=== PATIENT | female | born 1950 | race Caucasian/White ===

== ENCOUNTER → 2020-04-10 08:36 | Outpatient (REF) | payer MEDICARE, OTHER, SELFPAY ==
--- NOTE | 2020-04-10 08:30 | CA_ITS ---
Transthoracic Echocardiogram Patient (Last, First, Middle): Shari Witt J Gender: Female Date of : 1950 Age: 69 Procedure Date: 04/10/2020 Procedure Type: Transthoracic Echocardiogram Location: OP Height: 149.86 cm Weight: 104.33 kg BSA: 1.96 m2 Heart Rate: bpm BP: 130 / 68 mmHg Green Feed Attendant: ERIKA Referring MD: Dinh West MD Symptoms: 149.5, SSS( Sick sinus syndrome) 147.1 SVT ( Supraventricular tachycardia) Study Quality: Fair ECG Rhythm: Sinus Conclusions: - The left ventricular systolic function is normal. The visually estimated ejection fraction is between 55-60%. - E/E prime ratio is >15, consistent with elevated filling pressures. Evidence suggests grade I (mild) diastolic dysfunction. - No obvious valvular pathology seen on this study. Findings Left Ventricle Normal left ventricular cavity size. There is normal left ventricular wall thickness. The left ventricular systolic function is normal. The visually estimated ejection fraction is between 55-60%. There is no evidence of regional wall motion abnormalities. E/E prime ratio is >15, consistent with elevated filling pressures. Evidence suggests grade I (mild) diastolic dysfunction. Right Ventricle Normal right ventricular cavity size and systolic function. Atria The left atrium is normal in size. The right atrium is normal in size. Aortic Valve The aortic valve was not well visualized. There is no aortic valve stenosis. There is no aortic valve regurgitation. Mitral Valve The mitral valve appears normal. There is trace mitral valve regurgitation. There is no mitral valve stenosis. Pulmonic Valve The pulmonic valve was not well visualized. Tricuspid Valve There is trace tricuspid valve regurgitation. The pulmonary artery systolic pressure is normal. Great Vessels The aortic annulus, sinuses of valsalva, and asc aorta are normal in size. Venous The inferior vena cava is normal in size and collapses greater than 50% with inspiration. Pericardium/Pleural There is no evidence of pericardial effusion. Prior Study Comparison No significant change compared to prior study dated: 03/20/2019. Recommendations, Care & Conclusions No obvious valvular pathology seen on this study. Measurements 2D Linear Measurements IVSd: 1.10 0.6-0.9/0.6-1.0 cm LVIDd: 4.67 3.9-5.3/4.2-5.9 cm LVIDs: 2.60 2.0-3.6 cm LVPWd: 0.99 0.7-1.1 cm LV Mass: 214.71 67-162/88-224 g LVOT Diam: 1.93 3.0+(-)1.3 cm Mitral Valve MV Pk E: 0.78 MV PK A: 1.13 MV Decel Time: 161.06 E/A: 0.69 E'Lateral: 0.05 E'Medial: 0.04 E/E' Med: 17.61 Decel [place]: 4.82 Aortic Valve AoV Pk Nima: 1.55 AoV Pk Grad: 9.60 LVOT LVOT Pk Nima: 0.88 LVOT Mn Nima: 0.62 LVOT VTI: 0.21 LVOT Pk Grad: 3.11 LVOT Mn Grad: 1.72 LVOT Diam: 1.93 LVOT Area: 2.92 Diastolic Function MV Pk E: 0.78 MV Pk A: 1.13 E/A: 0.69 E'Medial: 0.04 E/E' Med: 17.61 E' Laterial: 0.05 Tricuspid Valve TR Pk Nima: 2.17 TR Pk Grad: 19.02 RA Press: 3.00 RVSP: 22.00 Great Vessels Aorta Ao Asc: 2.90 2.1-3.4 cm Updated in Other Vendor System with Status of Final Yvan Palacios MD electronically signed on 04/11/2020 12:43:50 PM with status of Final
== END ==
LOC: HO.CARD 08:36
PROVIDERS: PCP Internal Medicine; Visit Provider Internal Medicine Cardiovascular Disease
DX: I49.5 Sick sinus syndrome (principal); I44.7 Left bundle-branch block, unspecified; I47.1 Supraventricular tachycardia; G47.33 Obstructive sleep apnea (adult) (pediatric)
CPT/HCPCS: 93306

== ENCOUNTER → 2020-05-16 14:21 | Outpatient (BNVA) | payer MEDICARE, OTHER, SELFPAY | PROVIDERS: PCP Internal Medicine; Referring Provider Internal Medicine; Visit Provider Internal Medicine Cardiovascular Disease | DX: I47.1 Supraventricular tachycardia (principal); Z86.79 Personal history of other diseases of the circulatory system; Z79.82 Long term (current) use of aspirin; Z79.899 Other long term (current) drug therapy; Z95.0 Presence of cardiac pacemaker | CPT/HCPCS: 99212 ==

== ENCOUNTER → 2020-05-31 12:37 | Outpatient (BNVA) | payer MEDICARE, OTHER, SELFPAY | PROVIDERS: PCP Internal Medicine; Visit Provider Physician Assistant | DX: E66.01 Morbid (severe) obesity due to excess calories (principal) | CPT/HCPCS: 99202 ==

== ENCOUNTER → 2020-06-10 12:47 | Outpatient (BNVA) | payer MEDICARE, OTHER, SELFPAY | PROVIDERS: PCP Internal Medicine; Referring Provider Internal Medicine; Visit Provider Internal Medicine Cardiovascular Disease | DX: Z76.89 Persons encountering health services in other specified circumstances (principal) ==

== ENCOUNTER 2020-06-10 13:33 | Emergency (ER) | payer MEDICARE, OTHER, SELFPAY ==
--- NOTE | 2020-06-10 | ECG_ITS ---
Test Reason : RAPID HEART BEAT Blood Pressure : / mmHG Vent. Rate : 091 BPM Atrial Rate : 091 BPM P-R Int : 192 ms QRS Dur : 136 ms QT Int : 392 ms P-R-T Axes : 054 -58 098 degrees QTc Int : 482 ms Normal sinus rhythm Left axis deviation Left bundle branch block Abnormal ECG When compared with ECG of 10-JUN-2020 14:38, Sinus rhythm has replaced Wide QRS tachycardia Referred By: Brenda Bond Electronically Signed By:Aniket Bonilla
[2020-06-10 13:46] VITALS: BP 152/97; PULSE 124; RESP 18; TEMP 37; O2SAT 97; BMI 48.0
--- NOTE | 2020-06-10 13:46 | ECG_ITS ---
Test Reason : TACY Blood Pressure : / mmHG Vent. Rate : 125 BPM Atrial Rate : 125 BPM P-R Int : 000 ms QRS Dur : 126 ms QT Int : 338 ms P-R-T Axes : 000 -66 104 degrees QTc Int : 487 ms When compared with ECG of 01-APR-2018 13:14, Wide QRS tachycardia has replaced Sinus rhythm Vent. rate has increased BY 63 BPM Referred By: Brenda Bond Electronically Signed By:Aniket Bonilla
--- NOTE | 2020-06-10 13:46 | XR_ITS ---
EXAMINATION: XR CHEST CLINICAL INFORMATION: Tachycardia. COMPARISON: 08/12/2018 TECHNIQUE: Frontal view of the chest was obtained. FINDINGS: Stable cardiomediastinal silhouette. Left pectoral pacemaker with leads extending to the right atrium and right ventricle. Cardiac leads overlie the chest. Low lung volumes. No focal consolidation, effusion, edema or pneumothorax is seen. No acute osseous or fatty. XR/XR chest 1V IMPRESSION: No acute cardiopulmonary findings seen.
--- NOTE | 2020-06-10 13:48 | ED.CHESTPAIN ---
HPI - Chest Pain General Chief Complaint: Arrhythmia/Palpitations Stated Complaint: svt Time Seen by Provider: 06/10/20 13:35 Source: patient Mode of arrival: ambulatory History of Present Illness HPI narrative: 69-year-old female with a past medical history of LBBB, AVINASH, sick sinus syndrome, SVT, pacemaker sent to ED by Dr. West S/P SVT noted on in office EKG FLAME GOUGER with patient reported palpitations, lightheadedness, and chest tightness. Vagal maneuvers and carotid massage tried office without relief. Per cardiologists note Pacer telemetry did not reveal any other fast ventricular rate in the recent past. Patient denied symptoms prior to office visit. States sx began when she was being hooked up to machine in office. Denies SOB, fever, chills, cough/recent illness, recent travel, LE edema, abdominal pain, nausea/vomiting MD complaint: chest heaviness Related Data Home Medications Medication Instructions Recorded Confirmed aspirin 81 mg tablet,delayed 81 mg PO DAILY 05/16/20 06/10/20 release atorvastatin 20 mg tablet 20 mg PO DAILY 05/16/20 06/10/20 levothyroxine 75 mcg tablet 75 mcg PO DAILY tab 05/16/20 06/10/20 lorazepam 1 mg tablet 0.5 mg PO DAILY PRN 05/16/20 06/10/20 escitalopram oxalate 10 mg tablet 15 mg PO DAILY tab 06/10/20 06/10/20 Previous Rx's Medication Instructions Recorded metoprolol succinate 25 mg 25 mg PO DAILY 90 Days #90 tab 04/09/20 tablet,extended release 24 hr Allergies Allergy/AdvReac Type Severity Reaction Status Date / Time doxycycline [DOXYCYCLINE] Allergy Intermediate RASH Verified 06/10/20 13:16 Sulfa (Sulfonamide Allergy Intermediate RASH/VOMITI Verified 06/10/20 13:16 Antibiotics) NG [SULFA (SULFONAMIDE ANTIBIOTICS)] Review of Systems Review of Systems: Constitutional: No Weight loss, No Fever, No Chills Cardiovascular: + Chest Pain, No SOB, No Dyspnea on Exertion, No Orthopnea, No Edema, + Palpitations Respiratory: No Cough, No Sputum, No Dyspnea Gastrointestinal: No Nausea, No Vomiting, No Diarrhea, No Constipation, No Abdominal pain Genitourinary: No irregular bleeding, No Dysuria, No Urinary Frequency, No Hematuria Musculoskeletal: No joint pain, No Myalgias, No Joint Swelling Skin: No Skin Lesions, No rash Neuro: No Weakness, No Numbness, No Paresthesias, No Loss of Consciousness, + lightheaded, No Headache Yes all other systems are reviewed and are negative [facility] Past Medical History Attestation statement: The following information was validated with the patient. Source: nursing notes reviewed Medical History Cardiac pacemaker in situ LBBB (left bundle branch block) AVINASH (obstructive sleep apnea) Sick sinus syndrome SVT (supraventricular tachycardia) Surgical History H/O cardiac radiofrequency ablation History of cardiac radiofrequency ablation History of permanent cardiac pacemaker placement Hx of LASIK Hx of plastic surgery Hx of wisdom tooth extraction Family History Family History Father Sudden cardiac Mother Lung cancer Liver cancer Brother CVD (cardiovascular disease) Social History Social History Alcohol intake: former Smoking Status: Former smoker Advance Directives: No Advance Directives Information Provided: No Physical Exam Vital Signs: Vital Signs: Last Vital Signs Temp 98.6 F 06/10/20 13:46 Pulse 84 06/10/20 17:38 Resp 15 06/10/20 14:17 BP 141/81 H 06/10/20 17:38 Pulse Ox 97 06/10/20 14:17 Body Mass Index 48.0 Const: General: cooperative, healthy appearing and comfortable Orientation/consciousness: patient oriented x3 Limitations: no limitations HENMT: Head: Yes normal to inspection Ears: hearing grossly normal bilaterally General nose exam: Normal external nose present Face and sinus: Yes normal facial exam Eyes: General: appearance normal, both eyes and all related structures EOM: EOMs intact bilaterally Neck: Neck: Yes normal visual inspection and Yes no meningeal signs Resp: Effort & Inspection: normal respiratory effort Auscultation: clear to auscultation bilaterally, no rales, no rhonchi and no wheezes Cardio: Rate: regular rate and tachycardic Heart sounds: S1 normal heart sound present and S2 normal heart sound present GI: Inspection: Yes normal to inspection Palpation (GI): Soft to palpation, nontender, no guarding and not rigid Skin: Rashes: no rashes Wounds: no wounds Neuro: General: patient oriented x3 and no meningeal signs Gait exam (Neuro): Normal gait present Extrem: General: Yes normal to inspection Course Course Course Narrative: 1451-- ED EKG showing wide complex tachycardia with no discrete consistent P waves. Will give 6 of IV adenosine 1520-- patient self broke rhythm, heart rate at present 91-98, repeat EKG showing discernible regular P-waves > will hold on adenosine 1652- labs notable for elevated initial troponin 22.1 > will repeat 3 hour troponin CXR unremarkable Patient given 25 mg of p.o. metoprolol in the ED > heart rate now in the 70s, repeat troponin without delta > DE unlikely. Patient reports symptomatic improvement in the ED. Asymptomatic at present. Worrisome signs and symptoms and strict return precautions discussed. Per Dr. Borden note will increase metoprolol to 50 mg daily. Patient is aware, and reports she has enough Metoprolol at home. Will call in the morning for follow-up appointment. Worrisome signs and symptoms and strict return precautions discussed. Patient verbalized understanding feel safe for discharge home MDM - Chest Pain MDM Narrative Medical decision making narrative: 69-year-old female with a past medical history of LBBB, AVINASH, sick sinus syndrome, SVT, pacemaker sent to ED by Dr. West S/P SVT noted on in office EKG FLAME GOUGER with patient reported palpitations, lightheadedness, and chest tightness. On exam tachycardic, wide complex regular tachycardia noted on heart monitor, patient is nontoxic appearing, lungs CTA. Rule out metabolic/infectious etiology precipitating tachycardia vs ACS vs anxiety. Lower concern for PE Plan: EKG, labs, CXR, IVF, Reassess Lab Data Result diagrams: 06/10/20 13:53 06/10/20 17:21 Labs: Lab Results 06/10/20 06/10/20 06/10/20 Range/Units 13:53 13:53 13:53 WBC 8.1 (4.8-10.8) X10*3/uL RBC 4.98 (4.20-5.50) X10*6/uL Hgb 14.3 (12.0-16.0) g/dl Hct 45.2 (37-47) % MCV 90.8 (80-98) fL MCH 28.7 (27.0-33.0) pg MCHC 31.6 (31.0-35.0) g/dl RDW 14.7 (11.0-16.0) % Plt Count 306 (160-400) X10*3/uL MPV 10.0 (9.4-12.3) fL Immature Gran % (Auto) 0.1 (0.0-0.4) % Neut % (Auto) 55.8 (45-73) % Lymph % (Auto) 30.0 (20-40) % [place] % (Auto) 12.3 H (2-11) % Eos % (Auto) 1.2 (0-4) % Baso % (Auto) 0.6 (0-2) % Lymph # (Auto) 2.4 (1.2-4.9) X10*3/uL [place] # (Auto) 1.0 (0.1-1.2) X10*3/uL Eos # (Auto) 0.1 (0.0-0.4) X10*3/uL Baso # (Auto) 0.1 (0.0-0.2) X10*3/uL Abs Immat Gran (auto) 0.01 (0.00-0.03) X10*3/uL Absolute Neuts (auto) 4.5 (2.0-8.3) X10*3/uL Absolute Nucleated RBC 0.000 (0.0-0.012) X10*3/uL Nucleated RBC % (auto) 0.0 (0.0-0.2) /100WBC Hold Blue Top Sodium Cancelled Potassium Cancelled Chloride Cancelled Carbon Dioxide Cancelled Anion Gap Cancelled BUN Cancelled Creatinine Cancelled Estim Creat Clear Calc Cancelled Estimated GFR Cancelled Random Glucose Cancelled Calcium Cancelled Magnesium Cancelled Total Bilirubin Cancelled Direct Bilirubin Cancelled AST Cancelled ALT Cancelled Alkaline Phosphatase Cancelled Troponin I High Sens 22.1 H (<3.5-17.0) ng/L B-Natriuretic Peptide (<100) pg/mL Total Protein Cancelled Albumin Cancelled TSH Urine Color Urine Appearance Urine pH (5.0-8.0) Ur Specific [place] (1.005-1.025) Urine Protein (NEG-TRACE) MG/DL Urine Glucose (UA) (NEG) MG/DL Urine Ketones (NEG) MG/DL Urine Blood (NEG) Urine Nitrite (NEG) Ur Leukocyte Esterase (NEG) Urine RBC (0) /HPF Urine WBC (0-4) /HPF Ur Squamous Epith Cells /LPF Urine Bacteria /LPF 06/10/20 06/10/20 06/10/20 Range/Units 13:53 13:53 13:53 WBC (4.8-10.8) X10*3/uL RBC (4.20-5.50) X10*6/uL Hgb (12.0-16.0) g/dl Hct (37-47) % MCV (80-98) fL MCH (27.0-33.0) pg MCHC (31.0-35.0) g/dl RDW (11.0-16.0) % Plt Count (160-400) X10*3/uL MPV (9.4-12.3) fL Immature Gran % (Auto) (0.0-0.4) % Neut % (Auto) (45-73) % Lymph % (Auto) (20-40) % [place] % (Auto) (2-11) % Eos % (Auto) (0-4) % Baso % (Auto) (0-2) % Lymph # (Auto) (1.2-4.9) X10*3/uL [place] # (Auto) (0.1-1.2) X10*3/uL Eos # (Auto) (0.0-0.4) X10*3/uL Baso # (Auto) (0.0-0.2) X10*3/uL Abs Immat Gran (auto) (0.00-0.03) X10*3/uL Absolute Neuts (auto) (2.0-8.3) X10*3/uL Absolute Nucleated RBC (0.0-0.012) X10*3/uL Nucleated RBC % (auto) (0.0-0.2) /100WBC Hold Blue Top SEE NOTE Sodium Potassium Chloride Carbon Dioxide Anion Gap BUN Creatinine Estim Creat Clear Calc Estimated GFR Random Glucose Calcium Magnesium Total Bilirubin Direct Bilirubin AST ALT Alkaline Phosphatase Troponin I High Sens (<3.5-17.0) ng/L B-Natriuretic Peptide 21 (<100) pg/mL Total Protein Albumin TSH Cancelled Urine Color Urine Appearance Urine pH (5.0-8.0) Ur Specific [place] (1.005-1.025) Urine Protein (NEG-TRACE) MG/DL Urine Glucose (UA) (NEG) MG/DL Urine Ketones (NEG) MG/DL Urine Blood (NEG) Urine Nitrite (NEG) Ur Leukocyte Esterase (NEG) Urine RBC (0) /HPF Urine WBC (0-4) /HPF Ur Squamous Epith Cells /LPF Urine Bacteria /LPF 06/10/20 06/10/20 06/10/20 Range/Units 14:45 17:21 17:21 WBC (4.8-10.8) X10*3/uL RBC (4.20-5.50) X10*6/uL Hgb (12.0-16.0) g/dl Hct (37-47) % MCV (80-98) fL MCH (27.0-33.0) pg MCHC (31.0-35.0) g/dl RDW (11.0-16.0) % Plt Count (160-400) X10*3/uL MPV (9.4-12.3) fL Immature Gran % (Auto) (0.0-0.4) % Neut % (Auto) (45-73) % Lymph % (Auto) (20-40) % [place] % (Auto) (2-11) % Eos % (Auto) (0-4) % Baso % (Auto) (0-2) % Lymph # (Auto) (1.2-4.9) X10*3/uL [place] # (Auto) (0.1-1.2) X10*3/uL Eos # (Auto) (0.0-0.4) X10*3/uL Baso # (Auto) (0.0-0.2) X10*3/uL Abs Immat Gran (auto) (0.00-0.03) X10*3/uL Absolute Neuts (auto) (2.0-8.3) X10*3/uL Absolute Nucleated RBC (0.0-0.012) X10*3/uL Nucleated RBC % (auto) (0.0-0.2) /100WBC Hold Blue Top Sodium 139 Potassium 4.5 Chloride 105 Carbon Dioxide 25 Anion Gap 14 BUN 17 H Creatinine 0.78 Estim Creat Clear Calc 70.2 Estimated GFR > 60 Random Glucose 103 Calcium 8.8 Magnesium 2.1 Total Bilirubin 0.3 Direct Bilirubin < 0.2 AST 26 ALT 19 Alkaline Phosphatase 77 Troponin I High Sens 26.3 H (<3.5-17.0) ng/L B-Natriuretic Peptide (<100) pg/mL Total Protein 6.8 Albumin 4.0 TSH 1.69 Urine Color YELLOW Urine Appearance CLEAR Urine pH 5.5 (5.0-8.0) Ur Specific [place] >= 1.030 H (1.005-1.025) Urine Protein NEG (NEG-TRACE) MG/DL Urine Glucose (UA) NEG (NEG) MG/DL Urine Ketones 5 (NEG) MG/DL Urine Blood 1+ H (NEG) Urine Nitrite NEG (NEG) Ur Leukocyte Esterase NEG (NEG) Urine RBC 1-4 (0) /HPF Urine WBC 0-2 (0-4) /HPF Ur Squamous Epith Cells 1+ /LPF Urine Bacteria 1+ /LPF Discharge Plan Discharge Clinical Impression: SVT (supraventricular tachycardia) Patient Disposition: Home, Self-Care Instructions: Supraventricular Tachycardia (ED) Additional Instructions: Your blood work was reassuring today in the ED Your chest x-ray was unremarkable YOU NEED TO INCREASE HER METOPROLOL TO 50 MG DAILY AVOID ANY STIMULANTS 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 IF YOUR SYMPTOMS RECUR, PERSIST, YOU HAVE CONSTANT WORSENING CHEST PAIN, SHORTNESS OF BREATH, PALPITATIONS, LIGHTHEADEDNESS/DIZZINESS, OR PASSING RETURN TO THE ED IMMEDIATELY Prescriptions: No Action metoprolol succinate 25 mg tablet extended release 24 hr 25 mg PO DAILY 90 Days Qty: 90 RF: 3 atorvastatin 20 mg tablet 20 mg PO DAILY RF: 0 lorazepam 1 mg tablet 0.5 mg PO DAILY PRN (Reason: anxiety) RF: 0 aspirin [Adult Low Dose Aspirin] 81 mg tablet,delayed release (DR/EC) 81 mg PO DAILY RF: 0 levothyroxine 75 mcg tablet 75 mcg PO DAILY RF: 0 escitalopram oxalate 10 mg tablet 15 mg PO DAILY RF: 0 Referrals: Dinh West MD [Physician] - 5 days Interventions: ED Discharge Assessment Last Done: 06/10/20 18:58 Discharge Date/Time: 06/10/20 19:05
[2020-06-10] MEDS: 0.9 % Sodium Chloride 1,000 ML 999 ML IVCONT (13:55)
[2020-06-10 14:03] LABS: Basophils Absolute Auto 0.1 X10*3/uL (0.0-0.2); Basophils Percent Auto 0.6 % (0-2); Eosinophils Absolute Auto 0.1 X10*3/uL (0.0-0.4); Eosinophils Percent Auto 1.2 % (0-4); Hematocrit 45.2 % (37-47); Hemoglobin 14.3 g/dl (12.0-16.0); Imm Gran Abs Auto 0.01 X10*3/uL (0.00-0.03); Imm Gran Pct Auto 0.1 % (0.0-0.4); Lymphocytes Absolute Auto 2.4 X10*3/uL (1.2-4.9); MANUAL DIFF FLAG NO; Mean Corpuscular HGB Conc 31.6 g/dl (31.0-35.0); Mean Corpuscular Hemoglobin 28.7 pg (27.0-33.0); Mean Corpuscular Volume 90.8 fL (80-98); Monocytes Percent Auto 12.3 % (2-11); Neutrophils Absolute Auto 4.5 X10*3/uL (2.0-8.3); Neutrophils Percent Auto 55.8 % (45-73); Platelet Count 306 X10*3/uL (160-400); Red Blood Count 4.98 X10*6/uL (4.20-5.50); Red Cell Distribution Width 14.7 % (11.0-16.0); White Blood Count 8.1 X10*3/uL (4.8-10.8)
[2020-06-10 14:17] VITALS: PULSE 117; RESP 15; O2SAT 97
[2020-06-10 14:20] VITALS: PULSE 117
[2020-06-10 14:31] VITALS: BP 126/68
[2020-06-10 14:54] LABS: B Type Natriuretic Peptide 21 pg/mL (<100)
[2020-06-10 14:58] LABS: Troponin-I High Sensitivity 22.1 ng/L (<3.5-17.0)
[2020-06-10 15:06] LABS: Glucose Urine UA NEG (NEG); Leukocyte Esterase Urine NEG (NEG); Nitrite Urine NEG (NEG); PH 5.5 (5.0-8.0); Specific Gravity - Urine >= 1.030 (1.005-1.025); Urine Blood 1+ (NEG); Urine Ketones 5 MG/DL (NEG); Urine Protein NEG (NEG-TRACE)
[2020-06-10 15:11] LABS: Appearance Urine CLEAR; Color Urine YELLOW
[2020-06-10 15:21] LABS: Bacteria Urine 1+ /LPF; Squamous Epithelial Cell Urine 1+ /LPF; WBC Urine 0-2 /HPF (0-4)
--- NOTE | 2020-06-10 15:30 | PC.NURSE ---
patient to recieve adenosine for hr 130's. presently hr 89. provider aware. awaiting plan of actioin.
[2020-06-10 17:38] VITALS: BP 141/81; PULSE 84
[2020-06-10] MEDS: Metoprolol Tartrate 25 MG TABLET PO (17:38)
[2020-06-10 18:09] LABS: Alanine Aminotransferase 19 U/L (0-31); Alkaline Phosphatase 77 U/L (39-117); Anion Gap 14 (12-20); Aspartate Amino Transferase 26 U/L (5-31); Bilirubin Direct < 0.2 mg/dL (0.0-0.5); Bilirubin Total 0.3 mg/dL (0.0-1.0); Blood Urea Nitrogen 17 mg/dL (9-16); Calcium 8.8 mg/dL (8.4-10.2); Carbon Dioxide 25 mmol/L (22-29); Chloride 105 mmol/L (96-108); Creatinine Clr Calc Pharmacy 70.2; Estimated Glomerular Filt Rate > 60; Glucose Random 103 mg/dL (60-115); Magnesium 2.1 mg/dL (1.6-2.6); Potassium 4.5 mmol/l (3.3-5.1); Sodium 139 mmol/L (135-145); Total Protein 6.8 g/dL (6.5-8.0)
[2020-06-10 18:20] LABS: Troponin-I High Sensitivity 26.3 ng/L (<3.5-17.0)
[2020-06-10 18:30] LABS: TSH reflex Free T4 1.69 mIU/mL (0.32-4.0)
== END 2020-06-10 19:05 | disposition home or self-care (01) ==
PROVIDERS: Physician Assistant; Emergency Provider Emergency Medicine; PCP Internal Medicine
DX: I47.1 Supraventricular tachycardia (principal); Z95.0 Presence of cardiac pacemaker; Z79.82 Long term (current) use of aspirin; Z79.899 Other long term (current) drug therapy; Z87.891 Personal history of nicotine dependence
CPT/HCPCS: 36415; 71045; 80048; 80076; 81001; 81003; 83735; 83880; 84443; 84484; 85025; 93005; 96361; 96374; 99212; 99284

== ENCOUNTER → 2020-06-19 08:16 | Outpatient (BNVA) | payer MEDICARE, OTHER, SELFPAY | PROVIDERS: PCP Internal Medicine; Referring Provider Internal Medicine; Visit Provider Physician Assistant | DX: E66.01 Morbid (severe) obesity due to excess calories (principal); Z68.42 Body mass index [BMI] 45.0-49.9, adult; I47.1 Supraventricular tachycardia; Z79.899 Other long term (current) drug therapy; Z95.0 Presence of cardiac pacemaker | CPT/HCPCS: Q3014 ==

== ENCOUNTER → 2020-06-25 09:06 | Outpatient (BNVA) | payer MEDICARE, OTHER, SELFPAY | PROVIDERS: PCP Physician Assistant Medical; Visit Provider Internal Medicine Cardiovascular Disease | DX: Z76.89 Persons encountering health services in other specified circumstances (principal) ==

== ENCOUNTER → 2020-06-27 08:13 | Outpatient (BNVA) | payer MEDICARE, OTHER, SELFPAY | PROVIDERS: PCP Physician Assistant Medical; Visit Provider Dietitian, Registered | DX: Z76.89 Persons encountering health services in other specified circumstances (principal) ==

== ENCOUNTER → 2020-07-19 08:42 | Outpatient (BNVA) | payer MEDICARE, OTHER, SELFPAY | PROVIDERS: PCP Physician Assistant Medical; Visit Provider Physician Assistant | DX: Z13.89 Encounter for screening for other disorder (principal) | CPT/HCPCS: Q3014 ==

== ENCOUNTER → 2020-08-09 10:00 | Outpatient (BNVA) | payer MEDICARE, OTHER, SELFPAY | PROVIDERS: PCP Physician Assistant Medical; Visit Provider Nurse Practitioner Family | DX: Z13.89 Encounter for screening for other disorder (principal) | CPT/HCPCS: Q3014 ==

== ENCOUNTER → 2020-08-14 08:14 | Outpatient (BNVA) | payer MEDICARE, OTHER, SELFPAY | PROVIDERS: PCP Physician Assistant Medical; Visit Provider Physician Assistant | DX: I47.1 Supraventricular tachycardia (principal) | CPT/HCPCS: Q3014 ==

== ENCOUNTER → 2020-09-02 12:45 | Outpatient (BNVA) | payer MEDICARE, OTHER, SELFPAY | PROVIDERS: Visit Provider Internal Medicine Cardiovascular Disease ==

== ENCOUNTER → 2020-10-04 08:08 | Outpatient (BNVA) | payer MEDICARE, OTHER, SELFPAY | PROVIDERS: Visit Provider Physician Assistant | DX: E66.01 Morbid (severe) obesity due to excess calories (principal) | CPT/HCPCS: Q3014 ==

== ENCOUNTER → 2020-11-08 08:21 | Outpatient (BNVA) | payer MEDICARE, OTHER, SELFPAY | PROVIDERS: Visit Provider Physician Assistant | DX: E66.01 Morbid (severe) obesity due to excess calories (principal); Z68.41 Body mass index [BMI] 40.0-44.9, adult | CPT/HCPCS: Q3014 ==

== ENCOUNTER → 2020-12-06 08:20 | Outpatient (BNVA) | payer MEDICARE, OTHER, SELFPAY | PROVIDERS: Visit Provider Physician Assistant | DX: E66.01 Morbid (severe) obesity due to excess calories (principal) | CPT/HCPCS: Q3014 ==

== ENCOUNTER → 2021-01-15 08:14 | Outpatient (BNVA) | payer MEDICARE, OTHER, SELFPAY | PROVIDERS: Visit Provider Physician Assistant | DX: E66.9 Obesity, unspecified (principal); G47.33 Obstructive sleep apnea (adult) (pediatric); Z68.39 Body mass index [BMI] 39.0-39.9, adult; Z88.8 Allergy status to other drugs, medicaments and biological substances; Z95.0 Presence of cardiac pacemaker | CPT/HCPCS: Q3014 ==

== ENCOUNTER → 2021-02-19 08:10 | Outpatient (BNVA) | payer MEDICARE, OTHER, SELFPAY | PROVIDERS: Visit Provider Dietitian, Registered | DX: E66.09 Other obesity due to excess calories (principal); I44.7 Left bundle-branch block, unspecified; I47.1 Supraventricular tachycardia; G47.33 Obstructive sleep apnea (adult) (pediatric); Z68.38 Body mass index [BMI] 38.0-38.9, adult; Z98.890 Other specified postprocedural states; Z88.1 Allergy status to other antibiotic agents; Z88.2 Allergy status to sulfonamides; Z95.0 Presence of cardiac pacemaker | CPT/HCPCS: 97803 ==

== ENCOUNTER → 2021-03-24 08:17 | Outpatient (BNVA) | payer MEDICARE, OTHER, SELFPAY | PROVIDERS: Visit Provider Physician Assistant | DX: Z13.89 Encounter for screening for other disorder (principal) | CPT/HCPCS: Q3014 ==

== ENCOUNTER → 2021-04-25 08:40 | Outpatient (BNVA) | payer MEDICARE, OTHER, SELFPAY | PROVIDERS: Visit Provider Physician Assistant | DX: E66.9 Obesity, unspecified (principal); Z71.3 Dietary counseling and surveillance | CPT/HCPCS: Q3014 ==

== ENCOUNTER → 2021-05-05 13:06 | Outpatient (BNVA) | payer MEDICARE, OTHER, SELFPAY | PROVIDERS: Referring Provider Physician Assistant Medical; Visit Provider Internal Medicine Cardiovascular Disease | DX: Z45.018 Encounter for adjustment and management of other part of cardiac pacemaker (principal); I47.1 Supraventricular tachycardia; I44.7 Left bundle-branch block, unspecified | CPT/HCPCS: 93005; 99212 ==

== ENCOUNTER → 2022-04-29 08:23 | Outpatient (REF) | payer MEDICARE, OTHER, SELFPAY ==
--- NOTE | 2022-04-29 08:25 | CA_ITS ---
Transthoracic Echocardiogram Patient (Last, First, Middle): Shari Witt J Gender: Female Date of : 1950 Age: 71 Procedure Date: 04/29/2022 Procedure Type: Transthoracic Echocardiogram Location: OP Height: 149.86 cm Weight: 99.79 kg BSA: 1.92 m2 Heart Rate: bpm BP: 124 / 60 mmHg Education Department Registrar: Referring MD: Dinh West MD Symptoms: I44.7 - Left bundle-branch block, unspecified Study Quality: Fair ECG Rhythm: Sinus Conclusions: - The left ventricular systolic function is normal. The visually estimated ejection fraction is between 55-60%. - No obvious valvular pathology seen on this study. Findings Left Ventricle Normal left ventricular cavity size. There is mildly increased left ventricular wall thickness. The left ventricular systolic function is normal. The visually estimated ejection fraction is between 55-60%. There is no evidence of regional wall motion abnormalities. E/E prime ratio is >15, consistent with elevated filling pressures. Evidence suggests grade I (mild) diastolic dysfunction. Right Ventricle Normal right ventricular cavity size. There is mildly decreased right ventricular systolic function. Atria Both atria are normal in size. Aortic Valve The aortic valve was not well visualized. There is no aortic valve stenosis. There is no aortic valve regurgitation. Mitral Valve The mitral valve appears normal. There is trace mitral valve regurgitation. There is no mitral valve stenosis. Pulmonic Valve The pulmonic valve is likely normal. Tricuspid Valve The tricuspid valve was not well visualized. There is trace tricuspid valve regurgitation. There is no evidence of pulmonary hypertension. Great Vessels The aorta was not well visualized. Venous The inferior vena cava is normal in size and collapses greater than 50% with inspiration. Pericardium/Pleural There is no evidence of pericardial effusion. Prior Study Comparison No significant change compared to prior study dated: 04/10/2020. Recommendations, Care & Conclusions No obvious valvular pathology seen on this study. Measurements 2D Linear Measurements IVSd: 1.23 0.6-0.9/0.6-1.0 cm LVIDd: 4.58 3.9-5.3/4.2-5.9 cm LVIDd Index: 2.39 2.4-3.2/2.2-3.1 cm/m2 LVIDs: 2.83 2.0-3.6 cm LVPWd: 1.34 0.7-1.1 cm LA Diam: 3.80 2.7-3.8/3.0-4.0 cm LAIDs Index: 1.98 1.5-2.3 cm/m2 LV Mass: 280.23 67-162/88-224 g LV Mass Index: 145.95 43-95/49-115 g/m2 LVOT Diam: 1.90 3.0+(-)1.3 cm 2D Systolic Function EF 4C: 57.10 >55% EF 2C: 61.20 >55% EF BiP: 57.50 >55% Mitral Valve MV Pk E: 1.02 MV PK A: 1.01 MV Decel Time: 212.00 E/A: 1.00 E'Lateral: 4.03 E'Medial: 4.24 E/E' Med: 24.10 E/E' Lat: 25.30 PHT: 62.00 MVA PHT: 3.55 Decel [place]: 4.81 Aortic Valve AoV Pk Nima: 1.62 AoV Mn Nima: 1.11 AoV VTI: 0.41 AoV Pk Grad: 10.00 Aov Mn Grad: 6.00 JAMEL Cont.VTI: 1.57 LVOT LVOT Pk Nima: 0.93 LVOT Mn Nima: 0.63 LVOT VTI: 0.22 LVOT Pk Grad: 3.00 LVOT Mn Grad: 2.00 LVOT Diam: 1.90 LVOT Area: 2.84 Diastolic Function MV Pk E: 1.02 MV Pk A: 1.01 E/A: 1.00 E'Medial: 4.24 E/E' Med: 24.10 E' Laterial: 4.03 E/E' Lat: 25.30 Right Ventricle TAPSE (mm): 16.00 TVS' Nima: 10.00 Tricuspid Valve TR Pk Nima: 1.87 TR Pk Grad: 14.00 RA Press: 3.00 RVSP: 17.00 Pulmonary Valve PV Pk Nima: 0.79 Peak PV Grad: 2.00 Updated in Other Vendor System with Status of Final Yvan Palacios MD electronically signed on 04/30/2022 3:51:30 PM with status of Final
== END ==
LOC: HO.CARD 08:23
PROVIDERS: PCP Physician Assistant Medical; Visit Provider Internal Medicine Cardiovascular Disease
DX: I44.7 Left bundle-branch block, unspecified (principal)
CPT/HCPCS: 93306

== ENCOUNTER → 2022-05-11 12:26 | Outpatient (BNVA) | payer MEDICARE, OTHER, SELFPAY | PROVIDERS: PCP Physician Assistant Medical; Referring Provider Physician Assistant Medical; Visit Provider Internal Medicine Cardiovascular Disease | DX: Z45.018 Encounter for adjustment and management of other part of cardiac pacemaker (principal); I47.1 Supraventricular tachycardia; I44.7 Left bundle-branch block, unspecified | CPT/HCPCS: 93005; 93280; 99212 ==

== ENCOUNTER 2023-05-10 12:22 | Outpatient (AMB) | payer MEDICARE, OTHER, SELFPAY ==
[2023-05-10 12:34] VITALS: BP 126/84; PULSE 74; BMI 51.6
--- NOTE | 2023-05-10 12:34 | MHC.OFFVIS ---
Intake Vital Signs 05/10/23 12:34 Height 4 ft 11 in Weight 255 lb 11.779 oz BMI 51.6 BP 126/84 Blood Pressure Location Lt brachial Position Sitting Pulse 74 Intake Visit Reasons: 1 year fu w/ [employer] rep Intake Note: 1 year follow-up with [employer] and with ekg feeling good ? 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: No Manager Outreach: Manager Outreach Present Accompanied by: Spouse Allergies doxycycline [DOXYCYCLINE] Allergy (Intermediate, Verified 06/10/20 13:16) RASH Sulfa (Sulfonamide Antibiotics) [SULFA (SULFONAMIDE ANTIBIOTICS)] Allergy (Intermediate, Verified 06/10/20 13:16) RASH/VOMITING Medication List - Last Reconciled 05/10/23 by Dinh West MD aspirin (Adult Low Dose Aspirin) 81 mg PO DAILY atorvastatin 20 mg PO DAILY escitalopram oxalate 20 mg PO DAILY levothyroxine 75 mcg PO DAILY lorazepam 0.5 mg PO DAILY PRN metoprolol succinate ER 50 mg (2 x 25 mg) PO DAILY HPI HPI Comments History of Present Illness Details Shari comes for follow-up. She has no cardiac symptoms. Denies any prolonged palpitation irregular heartbeat. No lightheadedness, syncope. No orthopnea, PND, leg. Comes for pacemaker evaluation.. Has not been able to exercise much due to left foot problem. [facility] Medical History Cardiac pacemaker in situ LBBB (left bundle branch block) AVINASH (obstructive sleep apnea) Sick sinus syndrome SVT (supraventricular tachycardia) Surgical History H/O cardiac radiofrequency ablation History of cardiac radiofrequency ablation History of permanent cardiac pacemaker placement Hx of LASIK Hx of plastic surgery Hx of wisdom tooth extraction Family History Father Sudden cardiac Mother Lung cancer Liver cancer Brother CVD (cardiovascular disease) Social History Alcohol intake: former Review of Systems Const Denies chills, Denies fatigue, Denies fever(s), Denies frequent falls, Denies weakness, Denies weight gain and Denies weight loss ENT Denies dizziness Card Denies chest pain, Denies leg edema, Denies lightheadedness, Denies palpitations, Denies dyspnea, Denies dyspnea on exertion, Denies orthopnea and Denies other (loss of consciousness) Resp Denies cough, Denies dyspnea and Denies dyspnea on exertion GI Denies hematochezia and Denies change in stool character Musc Denies abnormal gait, Denies muscle weakness, Denies numbness, Denies radiating pain into limb and Denies tingling Neuro Denies abnormal gait, Denies dizziness, Denies frequent falls, Denies numbness, Denies tingling and Denies weakness Endo Denies fatigue and Denies palpitations Physical Exam Vital Signs: Last Vital Signs Pulse 74 05/10/23 12:34 BP 126/84 05/10/23 12:34 BMI result Body Mass Index 51.6 Const General: cooperative, no acute distress, alert, awake and anxious Nutritional Appearance: obese Orientation/consciousness: patient oriented x3 Limitations: no limitations HEENT Head: Yes normocephalic and Yes atraumatic Eyes General: appearance normal, both eyes and all related structures Neck Neck: Yes trachea midline, Yes supple and Yes no JVD Chest Chest palpation & inspection: normal inspection of the chest Resp Effort & Inspection: normal respiratory effort Auscultation: clear to auscultation bilaterally Cardio Jugular venous distension: no JVD Rate: regular rate and tachycardic Heart sounds: S1 normal heart sound present and S2 normal heart sound present Skin General skin exam: no rashes or lesions noted Neuro General: patient oriented x3 and no focal motor deficits Extrem General: Yes no clubbing, cyanosis or edema Psych Affect: Anxious affect present Office Procedures Cardiac Device Check Cardiac Device Check Details: Dual-chamber Medtronic pacemaker in place. Programmed in MVP mode with rate response. Battery life is excellent. Atrial pacing 77% of the time. No SVT. PACs noted. Pacing lead impedance is stable. Pacing thresholds adequate. [id number] Cardiac Device Check, pacemaker dual lead Procedure code (CPT) selection complete EKG Details: EKG shows atrially paced rhythm with PACs with left bundle-branch block 95241-Ukoefusmmehushquq, Complete Assessment & Plan Assessment & Plan (1) Cardiac pacemaker in situ: Comment: dual-chamber Medtronic pacemaker placed July 2018 for sick sinus syndrome Code(s): Z95.0 - Presence of cardiac pacemaker Plan: Cardiac pacemaker in-situ, working well for sick sinus syndrome. No symptoms related to it. Will follow remotely every 3 months. Follow up in the clinic in 1 year's time. (2) SVT (supraventricular tachycardia): Comment: status post ablation 2011 Code(s): I47.1 - Supraventricular tachycardia Plan: SVT which has remained suppressed on metoprolol therapy. Has done well with metoprolol therapy will continue with metoprolol therapy. Avoidance of stimulants was discussed. We also discussed vagal maneuvers. No change in treatment for PACs. (3) LBBB (left bundle branch block): Code(s): I44.7 - Left bundle-branch block, unspecified Plan: Left bundle-branch block with last echocardiogram a year ago showed preserved LV ejection fraction. Will monitor LV ejection fraction every 2 years to assess for development of cardiomyopathy. This was discussed with her. Continue CPAP therapy. Continue aggressive blood pressure control. (4) Obesity: Code(s): E66.9 - Obesity, unspecified Plan: Patient with significant obesity. We discussed about management of this. Consider recent drugs that have shown to help with weight reduction. Also she is encouraged to increase activity level. Also diet modification was discussed. Follow up in the clinic in 1 year's time, sooner p.r.n.. Thank you for allowing me to partake in her care Coding Level of Care Code Est Pt Level 4 (87782) Diagnoses Cardiac pacemaker in situ Z95.0 SVT (supraventricular tachycardia) I47.1 LBBB (left bundle branch block) I44.7 Obesity E66.9 CPT Codes Cardiac Device Check - Cardiac Device 2: 16295-FI Cardiac Device Check, pacemaker dual lead ([id number]) EKG - CPT: 60869-Adzwmpjytpuhyeprl, Complete ([id number])
== END 2023-05-10 13:04 | disposition home or self-care (01) ==
PROVIDERS: Visit Provider Internal Medicine Cardiovascular Disease
DX: I47.1 Supraventricular tachycardia (principal); I44.7 Left bundle-branch block, unspecified; Z95.0 Presence of cardiac pacemaker; E66.9 Obesity, unspecified
CPT/HCPCS: 93280; 99214

== ENCOUNTER → 2023-05-10 12:22 | Outpatient (BNVA) | payer MEDICARE, OTHER, SELFPAY | PROVIDERS: Visit Provider Internal Medicine Cardiovascular Disease | DX: Z45.018 Encounter for adjustment and management of other part of cardiac pacemaker (principal); I47.10 Supraventricular tachycardia, unspecified; I44.7 Left bundle-branch block, unspecified; E66.9 Obesity, unspecified; Z68.43 Body mass index [BMI] 50.0-59.9, adult | CPT/HCPCS: 93005; 93280; 99212 ==

== ENCOUNTER → 2023-07-14 23:59 | Outpatient (BNV) | payer MEDICARE, OTHER, SELFPAY ==
--- NOTE | 2023-07-19 12:28 | MHC.OFFVIS ---
Intake Intake Visit Reasons: Remote Device Check- [employer] Allergies doxycycline [DOXYCYCLINE] Allergy (Intermediate, Verified 06/10/20 13:16) RASH Sulfa (Sulfonamide Antibiotics) [SULFA (SULFONAMIDE ANTIBIOTICS)] Allergy (Intermediate, Verified 06/10/20 13:16) RASH/VOMITING PFSH Medical History Cardiac pacemaker in situ LBBB (left bundle branch block) AVINASH (obstructive sleep apnea) Sick sinus syndrome SVT (supraventricular tachycardia) Surgical History H/O cardiac radiofrequency ablation History of cardiac radiofrequency ablation History of permanent cardiac pacemaker placement Hx of LASIK Hx of plastic surgery Hx of wisdom tooth extraction Family History Father Sudden cardiac Mother Lung cancer Liver cancer Brother CVD (cardiovascular disease) Social History Alcohol intake: former Office Procedures Cardiac Device Check Cardiac Device Check Details: Remote pacemaker report generated 07/14/2023. Pacemaker function is adequate 14031-Snrbym Cardiac Device Interrogation, pacemaker Procedure code (CPT) selection complete Assessment & Plan Assessment & Plan (1) Cardiac pacemaker in situ: Comment: dual-chamber Medtronic pacemaker placed July 2018 for sick sinus syndrome Code(s): Z95.0 - Presence of cardiac pacemaker Plan: See above Coding Level of Care Code Procedure Only Diagnoses Cardiac pacemaker in situ Z95.0 CPT Codes Cardiac Device Check - Cardiac Device 12: [id number]-Knxmmf Cardiac Device Interrogation, pacemaker ([id number])
== END ==
PROVIDERS: PCP Physician Assistant Medical; Visit Provider Internal Medicine Cardiovascular Disease
DX: I49.5 Sick sinus syndrome (principal); Z95.0 Presence of cardiac pacemaker
CPT/HCPCS: 93294

== ENCOUNTER → 2023-10-31 23:59 | Outpatient (BNV) | payer MEDICARE, OTHER, SELFPAY ==
--- NOTE | 2023-11-02 14:50 | MHC.OFFVIS ---
Intake Visit Reasons: Remote device check- [employer] Allergies doxycycline [DOXYCYCLINE] Allergy (Intermediate, Verified 06/10/20 13:16) RASH Sulfa (Sulfonamide Antibiotics) [SULFA (SULFONAMIDE ANTIBIOTICS)] Allergy (Intermediate, Verified 06/10/20 13:16) RASH/VOMITING PFSH Medical History Cardiac pacemaker in situ LBBB (left bundle branch block) AVINASH (obstructive sleep apnea) Sick sinus syndrome SVT (supraventricular tachycardia) Surgical History H/O cardiac radiofrequency ablation History of cardiac radiofrequency ablation History of permanent cardiac pacemaker placement Hx of LASIK Hx of plastic surgery Hx of wisdom tooth extraction Family History Father Sudden cardiac Mother Lung cancer Liver cancer Brother CVD (cardiovascular disease) Social History Alcohol intake: former Office Procedures Cardiac Device Check Cardiac Device Check Details: Remote pacemaker report generated 10/31/2023. Pacemaker function is adequate [id number]-Zlmnbo Cardiac Device Interrogation, pacemaker Procedure code (CPT) selection complete Assessment & Plan Assessment & Plan (1) Cardiac pacemaker in situ: Comment: dual-chamber Medtronic pacemaker placed July 2018 for sick sinus syndrome Code(s): Z95.0 - Presence of cardiac pacemaker Category: Medical Plan: See above Coding Level of Care Code Procedure Only Diagnoses Cardiac pacemaker in situ Z95.0 CPT Codes Cardiac Device Check - Cardiac Device 12: 42989-Hlrdms Cardiac Device Interrogation, pacemaker ([id number])
== END ==
PROVIDERS: PCP Physician Assistant Medical; Visit Provider Internal Medicine Cardiovascular Disease
DX: Z45.018 Encounter for adjustment and management of other part of cardiac pacemaker (principal)
CPT/HCPCS: 93294

== ENCOUNTER → 2024-01-31 23:59 | Outpatient (BNV) | payer MEDICARE, OTHER, SELFPAY ==
--- NOTE | 2024-02-02 14:00 | MHC.OFFVIS ---
Intake Visit Reasons: Remote device check- [employer] Allergies doxycycline [DOXYCYCLINE] Allergy (Intermediate, Verified 06/10/20 13:16) RASH Sulfa (Sulfonamide Antibiotics) [SULFA (SULFONAMIDE ANTIBIOTICS)] Allergy (Intermediate, Verified 06/10/20 13:16) RASH/VOMITING PFSH Medical History Cardiac pacemaker in situ LBBB (left bundle branch block) AVINASH (obstructive sleep apnea) Sick sinus syndrome SVT (supraventricular tachycardia) Surgical History H/O cardiac radiofrequency ablation History of cardiac radiofrequency ablation History of permanent cardiac pacemaker placement Hx of LASIK Hx of plastic surgery Hx of wisdom tooth extraction Family History Father Sudden cardiac Mother Lung cancer Liver cancer Brother CVD (cardiovascular disease) Social History Alcohol intake: former Office Procedures Cardiac Device Check Cardiac Device Check Details: Remote pacemaker report generated 01/31/2024. Pacemaker function is adequate 09282-Pjinpy Cardiac Device Interrogation, pacemaker Procedure code (CPT) selection complete Assessment & Plan Assessment & Plan (1) Cardiac pacemaker in situ: Comment: dual-chamber [employer] pacemaker placed July 2018 for sick sinus syndrome Code(s): Z95.0 - Presence of cardiac pacemaker Category: Medical Plan: See above Coding Level of Care Code Procedure Only Diagnoses Cardiac pacemaker in situ Z95.0 CPT Codes Cardiac Device Check - Cardiac Device 12: 35545-Irognk Cardiac Device Interrogation, pacemaker ([id number])
== END ==
PROVIDERS: PCP Physician Assistant Medical; Visit Provider Internal Medicine Cardiovascular Disease
DX: I49.5 Sick sinus syndrome (principal); Z95.0 Presence of cardiac pacemaker
CPT/HCPCS: 93294

== ENCOUNTER → 2024-05-01 23:59 | Outpatient (BNV) | payer MEDICARE, OTHER, SELFPAY ==
--- NOTE | 2024-05-03 13:52 | MHC.OFFVIS ---
Intake Visit Reasons: Remote device check- [employer] Allergies doxycycline [DOXYCYCLINE] Allergy (Intermediate, Verified 06/10/20 13:16) RASH Sulfa (Sulfonamide Antibiotics) [SULFA (SULFONAMIDE ANTIBIOTICS)] Allergy (Intermediate, Verified 06/10/20 13:16) RASH/VOMITING PFSH Medical History Cardiac pacemaker in situ LBBB (left bundle branch block) AVINASH (obstructive sleep apnea) Sick sinus syndrome SVT (supraventricular tachycardia) Surgical History H/O cardiac radiofrequency ablation History of cardiac radiofrequency ablation History of permanent cardiac pacemaker placement Hx of LASIK Hx of plastic surgery Hx of wisdom tooth extraction Family History Father Sudden cardiac Mother Lung cancer Liver cancer Brother CVD (cardiovascular disease) Social History Alcohol intake: former Office Procedures Cardiac Device Check Cardiac Device Check Details: Remote pacemaker report generated 04/30/2024. Pacemaker function is adequate [id number]-Jeutip Cardiac Device Interrogation, pacemaker Procedure code (CPT) selection complete Assessment & Plan Assessment & Plan (1) Cardiac pacemaker in situ: Comment: dual-chamber [employer] pacemaker placed July 2018 for sick sinus syndrome Code(s): Z95.0 - Presence of cardiac pacemaker Category: Medical Plan: See above Coding Level of Care Code Procedure Only Diagnoses Cardiac pacemaker in situ Z95.0 CPT Codes Cardiac Device Check - Cardiac Device 12: [id number] Cardiac Device Interrogation, pacemaker ([id number])
== END ==
PROVIDERS: PCP Physician Assistant Medical; Visit Provider Internal Medicine Cardiovascular Disease
DX: Z45.018 Encounter for adjustment and management of other part of cardiac pacemaker (principal)
CPT/HCPCS: 93294

== ENCOUNTER 2024-05-09 10:18 | Outpatient (AMB) | payer MEDICARE, OTHER, SELFPAY ==
--- NOTE | 2024-05-09 10:30 | MHC.OFFVIS ---
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 Overall she has been doing well. She denies any symptoms of lightheadedness, syncope. Denies any symptoms of prolonged heartbeats. Uses CPAP. Takes all her medications. Denies any heart failure symptoms. No exertional chest pain. Does not truly participate in exercise program but able to do her activities of daily living [facility] Medical History AVINASH (obstructive sleep apnea) LBBB (left bundle branch block) Cardiac pacemaker in situ Sick sinus syndrome SVT (supraventricular tachycardia) Surgical History H/O cardiac radiofrequency ablation Hx of wisdom tooth extraction Hx of plastic surgery Hx of LASIK History of permanent cardiac pacemaker placement History of cardiac radiofrequency ablation Family History Father Sudden cardiac Mother Lung cancer Liver cancer Brother CVD (cardiovascular disease) Social History Alcohol intake: former Review of Systems Const Denies chills, Denies fatigue, Denies fever(s), Denies frequent falls, Denies weakness, Denies weight gain and Denies weight loss ENT Denies dizziness Card Denies chest pain, Denies leg edema, Denies lightheadedness, Denies palpitations, Denies dyspnea and Denies dyspnea on exertion Resp Denies cough, Denies dyspnea and Denies dyspnea on exertion GI Denies hematochezia Musc Denies abnormal gait, Denies muscle weakness, Denies numbness, Denies radiating pain into limb and Denies tingling Neuro Denies abnormal gait, Denies dizziness, Denies frequent falls, Denies numbness, Denies tingling and Denies weakness Endo Denies fatigue and Denies palpitations Physical Exam Vital Signs: Last Vital Signs Pulse 75 05/09/24 10:31 BP 130/70 05/09/24 10:31 BMI result Body Mass Index 52.4 Const General: cooperative, no acute distress, alert, awake and anxious Nutritional Appearance: obese Orientation/consciousness: patient oriented x3 Limitations: no limitations HEENT Head: Yes normocephalic and Yes atraumatic Eyes General: appearance normal, both eyes and all related structures Neck Neck: Yes trachea midline, Yes supple and Yes no JVD Chest Chest palpation & inspection: normal inspection of the chest Resp Effort & Inspection: normal respiratory effort Auscultation: clear to auscultation bilaterally Cardio Jugular venous distension: no JVD Rate: regular rate and tachycardic Heart sounds: S1 normal heart sound present and S2 normal heart sound present Skin General skin exam: no rashes or lesions noted Neuro General: patient oriented x3 and no focal motor deficits Extrem General: Yes no clubbing, cyanosis or edema Psych Affect: Anxious affect present Office Procedures Cardiac Device Check Cardiac Device Check Details: Dual-chamber [employer] pacemaker in place programmed in MVP mode with rate response. Atrial pacing 73% of the time. One brief episode of SVT noted. Atrial pacing thresholds excellent and reprogrammed to enhance battery life. Ventricular pacing thresholds adequate. Atrial ventricular sensing is stable. Pacing lead impedance is stable. 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 She has done extremely well with pacemaker placement. Will continue monitor pacemaker remotely and follow up in the clinic in 1 year's time. Device changes were made as required. (2) SVT (supraventricular tachycardia): Comment: status post ablation 2011 Code(s): I47.1 - Supraventricular tachycardia Category: Medical Plan: Highly symptomatic supraventricular tachycardia. She has done well with medical therapy. Currently suppressed on metoprolol therapy. She is liking this. We discussed about stress mitigation strategies. Discussed about avoidance of stimulants. Continue metoprolol therapy. No interventional therapy required at this point in time. (3) LBBB (left bundle branch block): Code(s): I44.7 - Left bundle-branch block, unspecified Category: Medical Plan: Left bundle-branch block which has remained stable. No signs or symptoms of heart failure. Follow-up echocardiogram next year to evaluate for cardiomyopathy. Advised and encouraged to participate in regular physical activity. Continue CPAP therapy. Follow up in the clinic in 1 year's time, sooner p.r.n.. Thank you for allowing me to partake in his care Coding Level of Care Code Est Pt Level 4 (21743) Complex EM visit Add On G2211 Diagnoses Cardiac pacemaker in situ Z95.0 SVT (supraventricular tachycardia) I47.1 LBBB (left bundle branch block) I44.7 CPT Codes Cardiac Device Check - Cardiac Device 2: 74994-GD Cardiac Device Check, pacemaker dual lead ([id number]) EKG - CPT: 58001-Suwepomtlikmmuklv, Complete ([id number])
[2024-05-09 10:31] VITALS: BP 130/70; PULSE 75; BMI 52.4
== END 2024-05-09 11:46 | disposition home or self-care (01) ==
PROVIDERS: PCP Physician Assistant Medical; Visit Provider Internal Medicine Cardiovascular Disease
DX: I47.10 Supraventricular tachycardia, unspecified (principal); I44.7 Left bundle-branch block, unspecified; Z95.0 Presence of cardiac pacemaker
CPT/HCPCS: 93010; 93280; 99214; G2211

== ENCOUNTER → 2024-05-09 10:18 | Outpatient (BNVA) | payer MEDICARE, OTHER, SELFPAY | PROVIDERS: PCP Physician Assistant Medical; Visit Provider Internal Medicine Cardiovascular Disease | DX: I47.10 Supraventricular tachycardia, unspecified (principal); I44.7 Left bundle-branch block, unspecified; G47.33 Obstructive sleep apnea (adult) (pediatric); Z99.89 Dependence on other enabling machines and devices; Z79.899 Other long term (current) drug therapy; Z45.018 Encounter for adjustment and management of other part of cardiac pacemaker | CPT/HCPCS: 93005; 93280; 99212 ==

== ENCOUNTER → 2024-07-30 23:59 | Outpatient (BNV) | payer MEDICARE, OTHER, SELFPAY ==
--- NOTE | 2024-08-02 15:57 | MHC.OFFVIS ---
Intake Visit Reasons: Remote device check- [employer] Allergies doxycycline [DOXYCYCLINE] Allergy (Intermediate, Verified 06/10/20 13:16) RASH Sulfa (Sulfonamide Antibiotics) [SULFA (SULFONAMIDE ANTIBIOTICS)] Allergy (Intermediate, Verified 06/10/20 13:16) RASH/VOMITING PFSH Medical History AVINASH (obstructive sleep apnea) LBBB (left bundle branch block) Cardiac pacemaker in situ Sick sinus syndrome SVT (supraventricular tachycardia) Surgical History H/O cardiac radiofrequency ablation Hx of wisdom tooth extraction Hx of plastic surgery Hx of LASIK History of permanent cardiac pacemaker placement History of cardiac radiofrequency ablation Family History Father Sudden cardiac Mother Lung cancer Liver cancer Brother CVD (cardiovascular disease) Social History Alcohol intake: former Office Procedures Cardiac Device Check Cardiac Device Check Details: Remote pacemaker report generated 07/30/2024. Pacemaker function is adequate 48738-Sslkuv Cardiac Device Interrogation, pacemaker Procedure code (CPT) selection complete Assessment & Plan Assessment & Plan (1) Cardiac pacemaker in situ: Comment: dual-chamber Medtronic pacemaker placed July 2018 for sick sinus syndrome Code(s): Z95.0 - Presence of cardiac pacemaker Category: Medical Plan: See above Coding Level of Care Code Procedure Only Diagnoses Cardiac pacemaker in situ Z95.0 CPT Codes Cardiac Device Check - Cardiac Device 12: 84668-Dcmmyh Cardiac Device Interrogation, pacemaker ([id number])
== END ==
PROVIDERS: PCP Physician Assistant Medical; Visit Provider Internal Medicine Cardiovascular Disease
DX: I49.5 Sick sinus syndrome (principal); Z95.0 Presence of cardiac pacemaker
CPT/HCPCS: 93294

== ENCOUNTER → 2024-12-15 23:59 | Outpatient (BNV) | payer MEDICARE, OTHER, SELFPAY ==
--- NOTE | 2024-12-27 14:48 | MHC.OFFVIS ---
Intake Visit Reasons: Remote device check- [employer] Allergies doxycycline (DOXYCYCLINE) Allergy (Intermediate, Verified 06/10/20 13:16) RASH Sulfa (Sulfonamide Antibiotics) (SULFA (SULFONAMIDE ANTIBIOTICS)) Allergy (Intermediate, Verified 06/10/20 13:16) RASH/VOMITING PFSH Medical History AVINASH (obstructive sleep apnea) LBBB (left bundle branch block) Cardiac pacemaker in situ Sick sinus syndrome SVT (supraventricular tachycardia) Surgical History H/O cardiac radiofrequency ablation Hx of wisdom tooth extraction Hx of plastic surgery Hx of LASIK History of permanent cardiac pacemaker placement History of cardiac radiofrequency ablation Family History Father Sudden cardiac Mother Lung cancer Liver cancer Brother CVD (cardiovascular disease) Social History Alcohol intake: former Office Procedures Cardiac Device Check Cardiac Device Check Details: Remote pacemaker report generated 12/15/2024. Pacemaker function is adequate. 61679-Aklwsy Cardiac Device Interrogation, pacemaker Procedure code (CPT) selection complete Assessment & Plan Assessment & Plan (1) Cardiac pacemaker in situ: Comment: dual-chamber [employer] pacemaker placed July 2018 for sick sinus syndrome Code(s): Z95.0 - Presence of cardiac pacemaker Category: Medical Plan: See above Coding Level of Care Code Procedure Only Diagnoses Cardiac pacemaker in situ Z95.0 CPT Codes Cardiac Device Check - Cardiac Device 12: 54096-Nizciv Cardiac Device Interrogation, pacemaker ([id number])
== END ==
PROVIDERS: PCP Physician Assistant Medical; Visit Provider Internal Medicine Cardiovascular Disease
DX: I49.5 Sick sinus syndrome (principal); Z95.0 Presence of cardiac pacemaker
CPT/HCPCS: 93294

== ENCOUNTER → 2025-03-17 23:59 | Outpatient (BNV) | payer MEDICARE, OTHER, SELFPAY ==
--- NOTE | 2025-03-21 13:07 | MHC.OFFVIS ---
Intake Visit Reasons: Remote device check- [employer] Allergies doxycycline (DOXYCYCLINE) Allergy (Intermediate, Verified 06/10/20 13:16) RASH Sulfa (Sulfonamide Antibiotics) (SULFA (SULFONAMIDE ANTIBIOTICS)) Allergy (Intermediate, Verified 06/10/20 13:16) RASH/VOMITING PFSH Medical History AVINASH (obstructive sleep apnea) LBBB (left bundle branch block) Cardiac pacemaker in situ Sick sinus syndrome SVT (supraventricular tachycardia) Surgical History H/O cardiac radiofrequency ablation Hx of wisdom tooth extraction Hx of plastic surgery Hx of LASIK History of permanent cardiac pacemaker placement History of cardiac radiofrequency ablation Family History Father Sudden cardiac Mother Lung cancer Liver cancer Brother CVD (cardiovascular disease) Social History Alcohol intake: former Office Procedures Cardiac Device Check Cardiac Device Check Details: Remote pacemaker report generated 03/17/2025. Pacemaker function is adequate. No significant arrhythmias noted [id number] Cardiac Device Interrogation, pacemaker Procedure code (CPT) selection complete Assessment & Plan Assessment & Plan (1) Cardiac pacemaker in situ: Comment: dual-chamber [employer] pacemaker placed July 2018 for sick sinus syndrome Code(s): Z95.0 - Presence of cardiac pacemaker Category: Medical Plan: See above Coding Level of Care Code Procedure Only Diagnoses Cardiac pacemaker in situ Z95.0 CPT Codes Cardiac Device Check - Cardiac Device 12: 74759-Qghssb Cardiac Device Interrogation, pacemaker ([id number])
== END ==
PROVIDERS: PCP Physician Assistant Medical; Visit Provider Internal Medicine Cardiovascular Disease
DX: I49.5 Sick sinus syndrome (principal); Z95.0 Presence of cardiac pacemaker
CPT/HCPCS: 93294

== ENCOUNTER → 2025-05-02 08:44 | Outpatient (REF) | payer OTHER, SELFPAY ==
--- NOTE | 2025-05-02 08:48 | CA_ITS ---
Transthoracic Echocardiogram Patient (Last, First, Middle): Shari Witt J Gender: F Date of : 1950 Age: 74 Procedure Date: 05/02/2025 Procedure Type: Transthoracic Echocardiogram Location: OP Height: 149. cm Weight: 102.06 kg BSA: 1.93 m2 Heart Rate: 65 bpm BP: 125 / 65 mmHg Logistics Account Manager: [email or web address] Referring MD: Dinh West MD Roofing Layer: Dinh West MD Symptoms: I44.7 - Left bundle-branch block, unspecified Study Quality: Technically Difficult/Fair ECG Rhythm: Sinus Conclusions: - 1. Normal LV ejection fraction 55-60% with elevated filling pressures 2. Mildly dilated left atrium 3. Mild aortic stenosis Findings Procedure Information The quality of the study was technically difficult. The study quality is limited by patients body habitus. Left Ventricle Normal left ventricular size, thickness, and systolic function. The visually estimated ejection fraction is between 55-60%. Regional wall motion abnormalities can not be excluded due to suboptimal endocardial definition. There is paradoxical septal motion consistent with a right ventricular pacemaker. Spectral Doppler is indicative of an impaired relaxation filling pattern. Elevated filling pressures. E/E prime ratio is >15, consistent with elevated filling pressures. Right Ventricle The right ventricle was not well visualized. There is normal right ventricular systolic function. There is a pacemaker wire seen in the right ventricle. Atria The left atrium is mildly dilated. Interatrial shunt cannot be excluded. The right atrium was not well visualized. Aortic Valve The aortic valve was not well visualized. There is mild aortic valve stenosis. There is no aortic valve regurgitation. Mitral Valve The mitral valve was not well visualized. There is trace mitral valve regurgitation. There is no mitral valve stenosis. Pulmonic Valve The pulmonic valve was not well visualized. Tricuspid Valve The tricuspid valve was not well visualized. Tricuspid regurgitation envelope is inadequate for calculation of right ventricular systolic pressure. Normal right atrial pressure. Great Vessels The aorta was not well visualized. The pulmonary artery was not well visualized. Venous The inferior vena cava is normal in size. Pericardium/Pleural The pericardium was not well visualized. Prior Study Comparison Changes noted compared to prior study dated: 04/29/2022. Mild aortic stenosis present Measurements 2D Linear Measurements IVSd: 1.15 0.6-0.9/0.6-1.0 cm LVIDd: 4.38 3.9-5.3/4.2-5.9 cm LVIDd Index: 2.27 2.4-3.2/2.2-3.1 cm/m2 LVIDs: 3.03 2.0-3.6 cm LVPWd: 1.07 0.7-1.1 cm LA Diam: 4.30 2.7-3.8/3.0-4.0 cm LAIDs Index: 2.23 1.5-2.3 cm/m2 LV Mass: 211.61 67-162/88-224 g LV Mass Index: 109.64 43-95/49-115 g/m2 LVOT Diam: 1.90 3.0+(-)1.3 cm 2D Systolic Function EF 4C: 55.10 >55% EF 2C: 55.50 >55% EF BiP: 56.10 >55% Mitral Valve MV Pk E: 1.00 MV PK A: 1.23 MV Decel Time: 259.00 E/A: 0.80 E'Lateral: 4.90 E'Medial: 3.92 E/E' Med: 25.50 E/E' Lat: 20.40 PHT: 76.00 MVA PHT: 2.89 Decel [place]: 3.88 Aortic Valve AoV Pk Nima: 1.76 AoV Mn Nima: 1.28 AoV VTI: 0.45 AoV Pk Grad: 12.00 Aov Mn Grad: 7.00 JAMEL Cont.VTI: 1.41 LVOT LVOT Pk Nima: 0.92 LVOT Mn Nima: 0.68 LVOT VTI: 0.22 LVOT Pk Grad: 3.00 LVOT Mn Grad: 2.00 LVOT Diam: 1.90 LVOT Area: 2.84 Diastolic Function MV Pk E: 1.00 MV Pk A: 1.23 E/A: 0.80 E'Medial: 3.92 E/E' Med: 25.50 E' Laterial: 4.90 E/E' Lat: 20.40 Right Ventricle TAPSE (mm): 20.90 TVS' Nima: 9.46 Tricuspid Valve RA Press: 3.00 Great Vessels Aorta Sinus of Valsalva: 2.50 2.0-3.5 cm Ao Asc: 3.20 2.1-3.4 cm Ao Arch: 2.30 Pulmonary Valve PV Pk Nima: 1.05 Peak PV Grad: 4.00 Updated in Other Vendor System with Status of Final Dinh West MD electronically signed on 05/02/2025 1:36:14 PM with status of Final
--- OUTSIDE RECORDS SUMMARY | 2025-05-02 09:12 | XMS_ITS | Clinical Summary ---
Author Organization [facility] [address] [facility] Address [address] [facility] [place] [address] Phone Care Team Providers Care Watershed Manager Name Role Phone Paul Lazaro Primary Care Provider [phone] Allergies Active Allergy Reactions Criticality Noted Date Comments Doxycycline Diarrhea Low 03/29/2013 Sulfamethoxazole-Trimethoprim Rash Medium 2012 Medications aspirin 81 mg EC tablet Take 1 tablet (81 mg total) by mouth. Active UNABLE TO FIND Inhale by mouth. Active escitalopram (LEXAPRO) 20 mg tablet TAKE 1 TABLET BY MOUTH EVERY DAY 90 tablet 3 4 Active metoprolol succinate (TOPROL-XL) 25 mg 24 hr tablet TAKE 2 TABLETS BY MOUTH EVERY DAY 180 tablet 3 4 Active levothyroxine (SYNTHROID, LEVOTHROID) 75 mcg tablet TAKE 1 TABLET BY MOUTH DAILY 6 DAYS A WEEK 72 tablet 3 5 Active mometasone (ELOCON) 0.1 % cream APPLY DAILY IN A THIN LAYER TO AFFECTED AREA 90 g 5 Active mometasone (ELOCON) 0.1 % ointment Apply a thin layer to the affected area nightly 45 g 5 Active clotrimazole (Clotrimazole 3 Day) 2 % vaginal cream Apply externally on vulva twice a day for up to 14 days. 21 g 5 Active atorvastatin (LIPITOR) 20 mg tablet Take 1 tablet (20 mg total) by mouth 1 (one) time each day. 90 tablet 1 5 Active ergocalciferol (VITAMIN D-2) 1,250 mcg (50,000 unit) capsule Take 1 capsule (50,000 Units total) by mouth 1 (one) time per week. 8 capsule 5 Active LORazepam (ATIVAN) 1 mg tablet TAKE 1/2-1 TABLET BY MOUTH TWICE A DAY NEEDED FOR ANXIETY OR INSOMNIA 45 tablet 5 Active LORazepam (ATIVAN) 1 mg tablet TAKE 1/2-1 TABLET BY MOUTH TWICE A DAY NEEDED FOR ANXIETY OR INSOMNIA 45 tablet 5 04/13/20 25 Discontinu ed(Reorder ) Active Problems Problem Noted Date Diagnosed Date Lichen planus 12/08/2024 Assessment & Plan (12/08/2024 12:05 PM EDT): Reviewed findings with patient. I counseled her that findings are consistent with lichen planus. New scarring of clitoral sandhu and erosions on medial labia minora/introitus are very suggestive and characteristic. Could repeat biopsy, but not at this time. I explained this is likely an autoimmune inflammatory condition and that the mainstay of therapy is use of maintenance topical steroid. I also explained the importance of regular follow up. I reviewed areas of application and amount of medication to use. She voiced understanding. She was given [facility] information re: LP today and will call with any questions. She will start mometasone nightly with skin barrier during the day. Postmenopausal bleeding 09/29/2023 Overview (04/13/2024): Last Assessment & Plan: I discussed with Shari that at this time, I recommend repeat EMB due to risk factors for hyperplasia and malignancy. She agreed. Procedure Note Indication for Procedure Encounter Diagnosis Name Primary? ? Postmenopausal bleeding Yes The patient was consented for an endometrial biopsy. She was placed in the lithotomy position. A sterile speculum was placed. The cervix was cleansed with betadine. A single-toothed tenaculum was placed on the anterior lip of the cervix. The uterus sounded to 8 cm in length. One pass with a 3 mm pipelle wa performed with a scant amount of tissue returning. This tissue was sent to pathology for further evaluation. The tenaculum was removed and the sites appeared hemostatic. The speculum was also removed. The patient tolerated the procedure well. We discussed postprocedure cramping and light bleeding. Advised to call with increasing pain, heavy bleeding, or fever. Pt will be informed of results when available. Prediabetes 04/09/2023 Cutaneous candidiasis 11/10/2022 Overview (04/13/2024): Last Assessment & Plan: I recommended she use goldbond antifungal powder BID in areas of concern to prevent yeast. We also discussed weight loss as a means to decreae chances of recurrence in the future. Assessment & Plan (12/08/2024 12:05 PM EDT): Will treat with oral fluconazole for likely superinfection. 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 Possible LS based on anatomical changes now visualized once the inflammatory component has resolved. I encouraged her to continue mometasone on the vulva and taper off in other areas. She will return in 3 months. Vitamin D deficiency 07/17/2022 Vertigo 03/04/2021 Vulvar rash 07/09/2020 Overview (04/13/2024): Last Assessment & Plan: I explained chema Mccarthy that if this is psoriasis, it does not require treatment unless symptomatic. Given her increased risk of skin yeast, recommended she hold steroid for now unless needed. 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 ([facility] V24) 08/02/2019 Pacemaker 11/08/2018 Overview (04/13/2024): 08/16 placed for tachy yola syndrome SSS (sick sinus syndrome) ([facility] V24, [facility] V28) 01/24/2018 Overview (04/13/2024): Improved off beta blockers Has LBBB Pacer placed 08/16 Idiopathic sleep-related hypoventilation 016 Obstructive sleep apnea 07/16/2015 Osteopenia 11/22/2014 Overview (04/13/2024): Jun 2012: T-score lumbar spine (-0.5); left hip (-2.2); FRAX score 9.3% October 2014: T-score lumbar spine (-0.5); left hip (-1.3); FRAX score 9.1% Apr 2017: T-score lumbar spine (+0.2); left hip (-2.1); FRAX score 9.7% Jul 2019: T-score lumbar spine (-0.1); left hip (-2.3); FRAX score 11% 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 Anxiety state 07/20/2005 Aortic stenosis 07/20/2005 Overview (04/13/2024): Mild 01/12 Hypothyroidism 07/20/2005 Paroxysmal supraventricular tachycardia (CMS/HCC V24) 07/20/2005 Overview (04/13/2024): Recurrent, ablation 04/08 Pure hypercholesterolemia 07/20/2005 Encounters Date Type Department Care Team Description 02/06/2025 9:45 AM EDT Office Visit Adult Medicine [address] [phone] Eva Garcia PA Pure hypercholesterolemia (Primary Dx); Prediabetes; Hypothyroidism, unspecified type; Paroxysmal supraventricular tachycardia (CMS/HCC V24); Vitamin D deficiency; Anxiety state; Mild episode of recurrent major depressive disorder (CMS/HCC V24) from Last 3 Months Surgical History Surgery Date Site/Laterality Comments CATARACT EXTRACTION 03/2012 PROCEDURE: HISTORICAL CATARACT REMOVAL; COMMENT: right COLONOSCOPY 11/04/2006 PROCEDURE: HISTORICAL COLONOSCOPY; COMMENT: Normal. History of polyp in 1999. Repeat in ten years. COLONOSCOPY 11/25/2016 PROCEDURE: HISTORICAL COLONOSCOPY; COMMENT: hemorrhoids; repeat in 10 yrs if healthy. HYSTEROSCOPY 06/03/2015 PROCEDURE: [place] HYSTEROSCOPY BX ENDOMETRIUM&/POLYPC W/WO D&C; COMMENT: benign polyp w/o hyperplasia HYSTEROSCOPY 10/10/2021 PROCEDURE: [place] HYSTEROSCOPY BX ENDOMETRIUM&/POLYPC W/WO D&C; COMMENT: PMB w findings consistent with endometrial polyp Medical History Medical History Date Comments Depressive disorder, not els ewhere classified 07/20/2005 DX:Depressive disorder, not elsewhere classified Pure hypercholesterolemia 07/20/2005 DX:Pur e hypercholesterolemia Paroxysmal supraventricular tachycardia (CMS/HCC V24) 07/20/2005 DX:Paroxysmal supraventricul ar tachycardia (HCC) Unspecified hypothyroidism 07/20/2005 DX:Un specified hypothyroidism Diarrhea 07/06/2006 DX:Diarrhea Anxiety state, unspecified 07/20/2005 DX:An xiety state, unspecified Other specified personal his tory presenting hazards to health(V15.89) 05/2012 DX:Other specifie d personal history presenting hazards to health(V15.89); COMMENT: pap neg, pos HPV Aortic stenosis 07/20/2005 DX:Aortic stenos is SSS (sick sinus syndrome) (C MS/HCC V24, CMS/HCC V28) 01/24/2018 DX:SSS (sick sinus syndrome) (HCC); COMMENT: Improved off beta blockers Has LBBB Pacemaker 11/08/2018 DX:Pacemaker; CO MMENT: 08/16 placed for tachy yola syndrome Family History Medical History Relation Name Comments Heart attack Father Other: breast cyst Mother benign Breast cancer Paternal Grandmother Colon cancer Neg Hx Ovarian cancer Neg Hx Pancreatic cancer Neg Hx Prostate cancer Neg Hx Uterine cancer Neg Hx Relation Name Status Comments Daughter Coryn Alive Father (Age 50's) mi Mother (Age 74) lung cance r Paternal Grandmother Social History Tobacco Use Types Packs/Day Years Used Date Smoking Tobacco: Former Cigarettes Q uit: 06/28/1974 Smokeless Tobacco: Never Tobacco Cessation:Counseling Given: Not Answered Alcohol Use Standard Drinks/Week Comments No 0 (1 standard drink = 0.6 oz pur e alcohol) Housing Instability Answer Date Recorde d Are you worried that in the next 2 months you may not have stable housing? No 12/03/2024 Food Access & Nutrition Answer Date Rec orded Do you have access to a vari ety of food including fruits and vegetables? Yes 12/03/2024 Access to Healthcare Answer Date Record ed Within the last 3 months, ernie ku many times did you visit the emergency department for your medical care? 0 12/03/2024 Health Literacy Answer Date Recorded How often do you need to hav e someone help you when you read instructions, pamphlets, or other written material from your doctor or pharmacy? Never 12/03/2024 Caregiver: How often do you need to have someone help you when you read instructions, pamphlets, or other written material from your doctor or pharmacy? Not on file 12/03/2024 Financial Risk Answer Date Recorded How hard is it for you to pa y for the very basics like food, housing, medical care, and air conditioning / heating? Not very hard 12/03/2024 Transportation Answer Date Recorded Has the lack of transportati on kept you from meetings, work, or from getting things needed for daily living? No Has the lack of transportati on kept you from medical appointments or from getting medications? No 12/03/2024 Social Isolation Answer Date Recorded How often do you feel lonely or isolated from those around you? Sometimes 12/03/2024 Food Risk Answer Date Recorded Within the past 12 months we worried whether our food would run out before we got money to buy more. Never true 12/03/2024 Within the past 12 months th e food we bought just didn't last and we didn't have money to get more. Never true 12/03/2024 Dependent Care Answer Date Recorded Do you need help finding or paying for care for your loved ones. For example, early childhood assistant or elderly care for an older adult? No 12/03/2024 Education Answer Date Recorded Do you think completing more education or training, like finishing a GED, going to college, or learning a trade, would be helpful for you? N/A 12/03/2024 Employment and Income Answer Date Recor ded During the last four weeks, have you been actively looking for work? No 12/03/2024 Living Situation Answer Date Recorded What is your living situation? Unrecognized valu e 12/03/2024 Comments No Sex and Gender Information Value Date Recorded Sex Assigned at Not on file Legal Sex Female 1:47 PM EST Gender Identity Not on file Sexual Orientation Not on file Obstetrics History * This document contains information received from the source organization and may not represent a complete record from that organization. Para Term AB IAB SAB Ectopic Multiple Livin g Live Births 2 1 1 1 1 Date Outcome GA Total Labor Labor/2nd/3rd Weight Sex Type Anes PTL Eve A1 A5 Name Clin Term Living Last Filed Vital Signs Vital Sign Reading Time Taken Comments Blood Pressure 108/58 02/06/2025 9:43 AM EDT Pulse 66 02/06/2025 9:43 AM EDT Temperature 35.9 C (96.7 F) 11/01/2024 8:13 AM EDT Respiratory Rate 12 02/06/2025 9:43 AM EDT Oxygen Saturation 95% 02/06/2025 9:43 AM EDT Inhaled Oxygen Concentration - - Weight 117 kg (258 lb) 02/06/2025 9:43 AM EDT Height 149.9 cm (4' 11 ) 02/06/2025 9:43 AM EDT Body Mass Index 52.11 02/06/2025 9:43 AM EDT Plan of Treatment Upcoming Encounters Date Type Department Care Team (Late st Contact Info) Description 07/30/2025 1:00 PM EST Office Visit Adult Medicine [address] [phone] Paul Lazaro PA [address] [place] [phone] 11/01/2025 10:30 AM EDT Office Visit Pulmonology - [place] [address] [facility] [address] [place] [phone] Azalia Rivera MD [address] [place] [phone] Health Maintenance Due Date Last Done Comments Zoster Vaccines (1 of 2) 10/25/1999 Medicare Annual Wellness Visit 06/06/2022 RSV Immunization Adult Patients (1 - 1-dose 75+ series) 2024 COVID-19 Vaccine ( season) 2025 03/10/2022, 05/28/2021, 10/07/2020, Additional history exists Influenza Vaccine (#1) 2025 , 05/22/2022, 04/20/2022, Additional history exists Falls Risk Assessment 07/28/2025 07/28/2024, 024 Social Influencers of Health Screening 12/03/2025 12/03/2024 Colorectal Cancer Screening: Colonoscopy 11/25/2026 11/25/2016 Cholesterol Screening (Lipid Panel) 02/07/2030 02/07/2025, 02/07/2024, 02/07/2024 DTaP,Tdap,and Td Vaccines (3 - Td or Tdap) 05/20/2032 05/20/2022, 04/25/2012 Osteoporosis Screening (Bone Density Screening) 06/30/2032 06/30/2022, 08/18/2019, 05/10/2017 Hepatitis C Screening Completed 11/02/2012 Pneumococcal Vaccine: 50+ Years Completed 07/28/2017, 06/10/2016 Breast Cancer Screening Discontinued 05/01/20 24, 04/19/2023, 04/13/2022, Additional history exists Depression Screening Completed 01/08/2025, 07/27/19 HIB Vaccines Aged Out No longer eligi ble based on patient's age to complete this topic HPV Vaccines Aged Out No longer eligi ble based on patient's age to complete this topic Hepatitis A Vaccines Aged Out No long er eligible based on patient's age to complete this topic Hepatitis B Vaccines Aged Out No long er eligible based on patient's age to complete this topic IPV Vaccines Aged Out No longer eligi ble based on patient's age to complete this topic MMR Vaccines Aged Out No longer eligi ble based on patient's age to complete this topic Meningococcal ACWY Vaccine Aged Out N o longer eligible based on patient's age to complete this topic Meningococcal B Vaccine Aged Out No l onger eligible based on patient's age to complete this topic RSV Immunization Patients Under 20 months Aged Out No longer eligible based on patient's age to complete this topic Varicella Vaccines Aged Out No longer eligible based on patient's age to complete this topic Procedures Procedure Name Priority Date/Time Associated Diagnosis Comments EXTERNAL DEVICE INTERROGATION REPORT 03/19/2025 COMPREHENSIVE METABOLIC PANEL Routine 02/07/2025 8:15 AM EDT Pure hypercholesterolemia LIPID PANEL WITH REFLEX TO DIRECT LDL Routine 02/07/2025 8:15 AM EDT Pure hypercholesterolemia THYROID STIMULATING HORMONE WITH REFLEX TO FREE T4 AND FREE T3 Routine 02/07/2025 8:15 AM EDT Hypothyroidism, unspecified type HEMOGLOBIN A1C Routine 02/07/2025 8:15 AM EDT Prediabetes VITAMIN D 25 HYDROXY Routine 02/07/2025 8:15 AM EDT Vitamin D deficiency MG MAMMO DIGITAL SCREENING W YAN BILAT Routine 05/01/2024 4:23 PM EST Encounter for screening mammogram for malignant neoplasm of breast FALLS RISK ASSESSMENT Routine 02/02/2024 DEPRESSION SCREENING Routine 07/27/2023 DXA BONE DENSITY STUDY 1+ SITS AXIAL SKEL Routine 06/30/2022 10:10 AM EST Other specified disorders of bone density and structure, unspecified site COLONOSCOPY Routine 11/25/2016 HEPATITIS C SCREENING Routine 11/02/2012 from Last 3 Months or Most Recently Relevant to Health Maintenance Results * External Device Interrogation Report (03/19/2025) Anatomical Region Laterality Modality Device Interroga tion us Provider [facility] CV IMPLANTABLE CARDIAC D EVICE PROCEDURES Final Result * Thyroid stimulating hormone with reflex to free t4 and free t3 (02/07/2025 8:15 AM EDT) TSH 1.48 0.40 - 4.00 mcIU/mL LAB CHEMISTRY METHOD 02/07/2025 12:24 PM EDT [facility] Blood Venous blood specimen / Unknown Venipuncture / Unknown 02/07/2025 8:15 AM EDT 02/07/2025 8:15 AM EDT Eva WALSH LAB BLOOD ORDERABLES Final Resul t [facility] [address] [place] [address], [place] [phone] * Lipid panel with reflex to direct LDL (02/07/2025 8:15 AM EDT) Cholesterol 167 0 - 200 mg/dL LAB CHEMISTRY METHOD [facility] Triglycerides 93 0 - 150 mg/dL LAB CHEMISTRY METHOD 02/07/2025 11:42 AM [facility] HDL 57 >=40 mg/dL LAB CHEMISTRY METHOD 02/07/2025 11:42 AM EDT [facility] LDL Calculated 91 0 - 100 mg/dL LAB CHEMISTRY METHOD 02/07/2025 11:42 AM [facility] Comment:Estimated LDL Calcul ated using equation: Total cholesterol - HDL cholesterol - (Triglycerides/5) VLDL Cholesterol [place] 18.6 mg/dL LAB CHEMISTRY METHOD 02/07/2025 11:42 AM [facility] Non HDL Chol. (LDL+VLDL) 110 <145 mg/dL LAB CHEMISTRY METHOD 02/07/2025 11:42 AM [facility] Chol/HDL Ratio 2.9 0.0 - 4.4 LAB CHEMISTRY METHOD 02/07/2025 11:42 AM [facility] Blood Venous blood specimen / Unknown Venipuncture / Unknown 02/07/2025 8:15 AM EDT 02/07/2025 8:15 AM EDT us Eva Jose WALSH LAB BLOOD ORDERABLES Final Resul t [facility] [address] [place] [address], * (ABNORMAL) Vitamin D 25 hydroxy (02/07/2025 8:15 AM EDT) Vit D, 25-Hydroxy 11.0(L) 30.0 - 80.0 ng/mL LAB CHEMISTRY METHOD 02/07/2025 12:24 PM EDT [facility] Blood Venous blood specimen / Unknown Venipuncture / Unknown 02/07/2025 8:15 AM EDT 02/07/2025 8:15 AM EDT Eva Jose WALSH LAB BLOOD ORDERABLES Final Resul t Performing Organization Address [facility]/ZIP Co de Phone Number [facility] [address] [place] [address], [place] [phone] * Hemoglobin A1c (02/07/2025 8:15 AM EDT) Pathologist [facility] Hemoglobin A1C 6.4 <6.5 % LAB CHEMISTRY METHOD 02/07/2025 11:37 AM EDT [facility] Mean Bld Glu Estim. 137 mg/dL LAB CHEMISTRY METHOD 02/07/2025 11:37 AM EDT [facility] Blood Venous blood specimen / Unknown Venipuncture / Unknown 02/07/2025 8:15 AM EDT 02/07/2025 8:15 AM EDT us Eva WALSH LAB BLOOD ORDERABLES Final Resul t Performing Organization Address [facility]/ZIP Co de Phone Number [facility] [address] [place] [address], [place] [phone] * Comprehensive metabolic panel (02/07/2025 8:15 AM EDT) Pathologist [facility] Sodium 140 133 - 145 mmol/L LAB CHEMISTRY METHOD 02/07/2025 11:42 AM EDT [facility] Potassium 4.0 3.5 - 5.5 mmol/L LAB CHEMISTRY METHOD 02/07/2025 11:42 AM EDT [facility] Chloride 108 96 - 110 mmol/L LAB CHEMISTRY METHOD 02/07/2025 11:42 AM EDT [facility] CO2 27 21 - 32 mmol/L LAB CHEMISTRY METHOD 02/07/2025 11:42 AM EDT [facility] Anion Gap 5 3 - 11 LAB CHEMISTRY METHOD 02/07/2025 11:42 AM [facility] Glucose 98 70 - 100 mg/dL LAB CHEMISTRY METHOD 02/07/2025 11:42 AM [facility] BUN 12 5 - 25 mg/dL LAB CHEMISTRY METHOD 02/07/2025 11:42 AM [facility] Creatinine 0.69 0.50 - 1.10 mg/dL LAB CHEMISTRY METHOD 02/07/2025 11:42 AM [facility] eGFR 91 >=60 mL/min/1. 73m2 LAB CHEMISTRY METHOD 02/07/2025 11:42 AM [facility] Comment:Calculation based on the Chronic Kidney Disease Epidemiology Collaboration (CKD-EPI) equation refit without adjustment for race. BUN/Creatinine Ratio 17.4 LAB CHEMISTRY METHOD 02/07/2025 11:42 AM [facility] Calcium 9.0 8.5 - 10.5 mg/dL LAB CHEMISTRY METHOD 02/07/2025 11:42 AM [facility] AST (SGOT) 13 10 - 42 unit/L LAB CHEMISTRY METHOD 02/07/2025 11:42 AM [facility] ALT (SGPT) 13 10 - 60 unit/L LAB CHEMISTRY METHOD 02/07/2025 11:42 AM [facility] Alkaline Phosphatase 116 42 - 121 unit/L LAB CHEMISTRY METHOD 02/07/2025 11:42 AM [facility] Total Protein 6.8 6.0 - 8.0 g/dL LAB CHEMISTRY METHOD 02/07/2025 11:42 AM [facility] Albumin 3.4 3.2 - 5.0 g/dL LAB CHEMISTRY METHOD 02/07/2025 11:42 AM [facility] Total Bilirubin 0.5 0.0 - 1.4 mg/dL LAB CHEMISTRY METHOD 02/07/2025 11:42 AM EDT [facility] Blood Venous blood specimen / Unknown Venipuncture / Unknown 02/07/2025 8:15 AM EDT 02/07/2025 8:15 AM EDT us Eva Jose WALSH LAB BLOOD ORDERABLES Final Resul t [facility] [address] [place] [address], [place] [phone] * MG Mammo Digital Screening w Yan bilat (05/01/2024 4:23 PM EST) Anatomical Region Laterality Modality Breast Bilateral Mammography 05/02/2024 2:09 PM EST Impressions 05/02/2024 2:25 PM EST 1. No mammographic evidence of malignancy 2. Scattered fibroglandular tissue BI-RADS CATEGORY: 2 - BENIGN RECOMMENDATION: Screening bilateral mammogram is recommended in 1 year. Mammo Location: [facility], [address] [place] [address], [id number], . -------- FINAL REPORT -------- Dictated By: Villa Reid Dictated Date: 05/02/2024 14:09 ET Assigned Physician: Villa Reid Reviewed and Electronically Signed By: Villa Reid Signed Date: 05/02/2024 14:25 ET Workstation ID: [id number] Transcribed By: Self Edit Transcribed Date: 05/02/2024 14:09 ET Narrative 05/02/2024 2:25 PM EST A BILATERAL DIGITAL 3D SCREENING MAMMOGRAPHY HISTORY: Routine screening. Family history of breast cancer in grandmother. COMPARISON: Multiple priors dating back to 03/21/2020 Technique: Bilateral full field digital mammography (3D) was performed using standard CC and MLO projections , right breast exaggerated CC. Left axilla obscured due to cardiac device CAD was used to evaluate this mammogram. FINDINGS: RIGHT: No suspicious masses, groups of microcalcification or areas of architectural distortion identified. Stable typically benign parenchymal asymmetries. LEFT: No suspicious masses, groups of microcalcification or areas of architectural distortion identified. Stable typically benign parenchymal asymmetries. BREAST DENSITY: B - There are scattered areas of fibroglandular density. Procedure Note Villa Reid MD - 05/02/2024 A BILATERAL DIGITAL 3D SCREENING MAMMOGRAPHY HISTORY: Routine screening. Family history of breast cancer ingrandmother. COMPARISON: Multiple priors dating back to 03/21/2020 Technique: Bilateral full field digital mammography (3D) was performedusing standard CC and MLO projections , right breast exaggerated CC. Leftaxilla obscured due to cardiac device CAD was used to evaluate this mammogram. FINDINGS: RIGHT: No suspicious masses, groups of microcalcification or areas ofarchitectural distortion identified. Stable typically benign parenchymalasymmetries. LEFT: No suspicious masses, groups of microcalcification or areas ofarchitectural distortion identified. Stable typically benign parenchymalasymmetries. BREAST DENSITY: B - There are scattered areas of fibroglandular density. IMPRESSION: 1. No mammographic evidence of malignancy 2. Scattered fibroglandular tissue BI-RADS CATEGORY: 2 - BENIGN RECOMMENDATION: Screening bilateral mammogram is recommended in 1 year. Mammo Location: [facility], [address] [place] [address], [phone], . -------- FINAL REPORT -------- Dictated By: Villa Reid Dictated Date: 05/02/2024 14:09 ET Assigned Physician: Villa Reid Reviewed and Electronically Signed By: Villa Reid Signed Date: 05/02/2024 14:25 ET Workstation ID: [id number] Transcribed By: Self Edit Transcribed Date: 05/02/2024 14:09 ET Paul WALSH IMG BI PROCEDURES Final R esult * Falls Risk Assessment (02/02/2024) Pathologist [facility] Falls Risk Assessment abstracted Historical Provider HEALTH MAINTENANCE Final Result * Depression Screening (07/27/2023) Depression Screening abstracted us Historical Provider HEALTH MAINTENANCE Final Result * DXA BONE DENSITY STUDY 1+ KAUSHIK MUNOZ (06/30/2022 10:10 AM EST) Anatomical Region Laterality Modality Bone Densitometr y 05/20/2022 8:59 AM EST Narrative 06/30/2022 6:07 PM EST BONE DENSITY SCAN (DEXA): FINDINGS: Lumbar Spine T-score is -0.2. (SD relative to 20-29 y/o adult) Z-score is 2.1. (SD relative to age matched peers) This is considered normal by WHO criteria. Left Hip T-score is -2.2. Z-score is -0.2. This is considered osteopenia by WHO criteria. Comparison exam(s): As recent as 08/18/2019 and as far back as 05/31/2002. 4.9% increase in left hip bone mineral density compared with 2020, statistically significant at the 95% confidence level. Otherwise, no statistically significant change in bone mineral density compared with previous and baseline exams.. IMPRESSION: IMPRESSION: Osteopenia by WHO criteria. This patient has a 10% risk of major osteoporotic fracture and a 2.1% risk of hip fracture over the next 10 years. (World Health Organization Fracture Risk Assessment) The [facility] of Internal Medicine recommends using National Osteoporosis Foundation (NOF) guidelines in treatment decisions related to osteoporosis. NOF guidelines suggest considering treatment for postmenopausal women and men aged 50 or older presenting with the following: History of hip or vertebral fracture. T-score = -2.5 (DXA) at the femoral neck, total hip, or spine, after appropriate evaluation to exclude secondary causes. Low bone mass (T-score between -1.0 and -2.5 at the femoral neck or spine) AND a 10-year probability of a hip fracture = 3% OR a 10-year probability of a major osteoporosis-related fracture = 20% based on the [place]-adapted WHO algorithm Please note that all treatment decisions require clinical judgment and consideration of individual patient factors, including patient preferences, co-morbidities, previous drug use, risk factors not captured in the FRAX model (e.g., frailty, falls, vitamin D deficiency, increased bone turnover, interval significant decline in bone density) and possible under- or over-estimation of fracture risk by FRAX. Optional alternative screening schedule based on silvio Stevenson., [facility] July 16, 2011 for patients with osteopenia (based on hip BMD T-score) is as follows: * advanced osteopenia (T scores -2.00 to -2.49), BMD testing every year * moderate osteopenia (T scores -1.50 to -1.99), BMD testing every 5 years mild osteopenia or normal BMD (T scores -1.50 and higher), BMD testing every 15 years Procedure Note Padma Burrell MD - 08/03/2023 BONE DENSITY SCAN (DEXA): FINDINGS: Lumbar Spine T-score is -0.2. (SD relative to 20-29 y/o adult) Z-score is 2.1. (SD relative to age matched peers) This is considered normal by WHO criteria. Left Hip T-score is -2.2. Z-score is -0.2. This is considered osteopenia by WHO criteria. Comparison exam(s): As recent as 08/18/2019 and as far back as 05/31/2002.4.9% increase in left hip bone mineral density compared with 2020, statisticallysignificant at the 95% confidence level. Otherwise, no statistically significant change in bonemineral density compared with previous and baseline exams.. IMPRESSION: IMPRESSION: Osteopenia by WHO criteria. This patient has a 10% risk of majorosteoporotic fracture and a 2.1% risk of hip fracture over the next 10 years. (World HealthOrganization Fracture Risk Assessment) The [facility] Department of Internal Medicine recommendsusing National Osteoporosis Foundation (NOF) guidelines in treatment decisions related toosteoporosis. NOF guidelines suggest considering treatment for postmenopausal women and menaged 50 or older presenting with the following: History of hip or vertebral fracture. T-score = -2.5 (DXA) at the femoral neck, total hip, or spine, afterappropriate evaluation to exclude secondary causes. Low bone mass (T-score between -1.0 and -2.5 at the femoral neck or spine)AND a 10-year probability of a hip fracture = 3% OR a 10-year probability of a majorosteoporosis-related fracture = 20% based on the [place]-adapted WHO algorithm Please note that all treatment decisions require clinical judgment andconsideration of individual patient factors, including patient preferences, co- morbidities,previous drug use, risk factors not captured in the FRAX model (e.g., frailty, falls, vitaminD deficiency, increased bone turnover, interval significant decline in bone density) andpossible under- or over-estimation of fracture risk by FRAX. Optional alternative screening schedule based on ning Stevenson al., NEJMJanuary 2011 for patients with osteopenia (based on hip BMD T-score) is as follows: * advanced osteopenia (T scores -2.00 to -2.49), BMD testing every year * moderate osteopenia (T scores -1.50 to -1.99), BMD testing every 5years mild osteopenia or normal BMD (T scores -1.50 and higher), BMD testingevery 15 years Paul WALSH IMIsacc DXA PROCEDURES Final Result * Colonoscopy (11/25/2016) Pathologist [facility] Colonoscopy no interpretation , abstracted Anatomical Region Laterality Modality Other Historical Provider HEALTH MAINTENANCE Final Result * Hepatitis C Screening (11/02/2012) [facility] Hepatitis C Screening abstracted [facility] Provider HEALTH MAINTENANCE Final Result from Last 3 Months or Most Recently Relevant to Health Maintenance Insurance MEDICARE [facility] Care Teams Watershed Manager Relationship Specialty Start Date End Date Paul Lazaro PA [address] [place] [address] PCP - General Internal Medicine 05/22/24
--- OUTSIDE RECORDS SUMMARY | 2025-05-02 09:12 | XMS_ITS | Patient Health Record ---
[facility] Address [address] [place] [address] Care Team Providers Care Manager Marketing Communications Name Role Phone Paul Peck Primary Care Provider Jose TelloarnoldMeme Unavailable [phone] Allergies Allergen (clinical drug ingredient) Drug/Non Drug Allergy documented on EMR Reaction Allergy Type Onset Date Status sulfamethoxazole / trimethoprim Bactrim rash, vomit Drug Allergy Active Reason For Referral No Information Medications Medication SIG (Take, Route, Frequency, Duration) Notes Start Date End Date Status Physical Therapy . . . 2-3x/week; Durat ion: 3-4 weeks 03/17/2023 Active Baby Aspirin 81 mg Active Levothyroxine Sodium 75 MCG 1 tablet in the morning on an empty stomach Orally Once a day; Duration: 30 day(s) Active Medrol radha 4mg as directed orally a s directed; Duration: 6 days 01/13/2023 Active Atorvastatin Calcium 20 MG 1 tablet Oral ly Once a day; Duration: 30 day(s) Active Metoprolol Succinate 25 MG 1 capsule Ora lly Once a day; Duration: 30 day(s) Active LORazepam 1 MG 1 tablet at bedtime as needed Orally Once a day Active Escitalopram Oxalate 10 MG 1 tablet Oral ly Once a day; Duration: 30 day(s) Active Social History Tobacco Use: Social History Observation Description Date Details (start date - stop date) Former Smoker NA - NA Tobacco Use/Smoking Question Answer Notes Are you a: former smoker Additional Findings: Tobacco Non-User Current no n-smoker Alcohol Screen Question Answer Notes Did you have a drink containing alcohol in the p ast year? No Points 0 Interpretation Negative Tobacco use other than smoking: Question Answer Notes Are you an other tobacco user? No Problems Problem Type SNOMED Code ICD Code Onset Dates Problem Status W/U Status Risk Notes Problem Localized, primary osteoarthritis of the ankle and/or foot (138520211) Osteoarthritis of left ankle and foot (M19.072) Active confirmed Plan Of Treatment Pending Test Test Name Order Date X ray : Foot, left 3V 01/13/2023 [id number] TENDON SHEATH/LIGAMENT 0 02/10/2023 Insurance Providers Payer Name Payer Address Payer Phone Subscriber Number Group Number Insured Name Patient Relationship to Insured Coverage Start Date Coverage End Date Medicare [employer] [address] [place] [address] [id number] Shari Shah Self - patient is the insured [employer] [address] [place] [address] [id number] Shari Shah Self - patient is the insured Medical (General) History Medical History History ICD Code Anxiety CAD (Cholesterol) Cataracts covid-19 Depression Heart attack Measles Mumps Chicken pox Surgical History Surgery Date(Month/Year) pacemaker 2019
== END ==
LOC: HO.CARD 08:44
PROVIDERS: Visit Provider Internal Medicine Cardiovascular Disease
DX: I44.7 Left bundle-branch block, unspecified (principal)
CPT/HCPCS: 93306

== ENCOUNTER → 2025-05-02 08:48 | Outpatient (BNV) | payer OTHER, SELFPAY | PROVIDERS: Visit Provider Internal Medicine Cardiovascular Disease | DX: I51.7 Cardiomegaly (principal); I35.0 Nonrheumatic aortic (valve) stenosis | CPT/HCPCS: 93306 ==

== ENCOUNTER 2025-05-08 14:36 | Outpatient (AMB) | payer OTHER, SELFPAY ==
--- NOTE | 2025-05-08 14:43 | MHC.OFFVIS ---
Vital Signs 05/08/25 14:44 Height 4 ft 11 in Weight 260 lb 2.327 oz BMI 52.5 BP 126/80 Blood Pressure Location Lt brachial Position Sitting Pulse 76 Intake Visit Reasons: 1yr f/up-echo Intake Note: 1 year follow-up with ekg after echo refusses having Clinician Therapeuticstronic check want rep booked Data Collection Interviewer Required: No Allergies doxycycline (DOXYCYCLINE) Allergy (Intermediate, Verified 06/10/20 13:16) RASH Sulfa (Sulfonamide Antibiotics) (SULFA (SULFONAMIDE ANTIBIOTICS)) Allergy (Intermediate, Verified 06/10/20 13:16) RASH/VOMITING Medication List - Last Reconciled 05/08/25 by Dinh West MD aspirin (Adult Low Dose Aspirin) 81 mg PO DAILY atorvastatin 20 mg PO DAILY escitalopram oxalate 20 mg PO DAILY levothyroxine 75 mcg PO DAILY lorazepam 0.5 mg PO DAILY PRN metoprolol succinate ER 50 mg (2 x 25 mg) PO DAILY HPI Comments Details: Shari comes for follow-up. She had a recent echocardiogram shows normal LV ejection fraction with mild aortic stenosis. Overall doing well. She denies any symptoms of palpitation including prolonged heartbeat or skipped heartbeats. Denies any exertional chest pain or shortness of breath. No orthopnea, PND, leg edema. She does not want me to evaluate her pacemaker although remote. Cole function has been adequate. Takes all her medications. [facility] Medical History AVINASH (obstructive sleep apnea) LBBB (left bundle branch block) Cardiac pacemaker in situ Sick sinus syndrome SVT (supraventricular tachycardia) Surgical History H/O cardiac radiofrequency ablation Hx of wisdom tooth extraction Hx of plastic surgery Hx of LASIK History of permanent cardiac pacemaker placement History of cardiac radiofrequency ablation Family History Father Sudden cardiac Mother Lung cancer Liver cancer Brother CVD (cardiovascular disease) Social History Alcohol intake: former Review of Systems Const Denies chills, Denies fatigue, Denies fever(s), Denies frequent falls, Denies weakness, Denies weight gain and Denies weight loss ENT Denies dizziness Card Denies chest pain, Denies leg edema, Denies lightheadedness, Denies palpitations, Denies dyspnea, Denies dyspnea on exertion, Denies orthopnea and Denies other (loss of consciousness) Resp Denies cough, Denies dyspnea and Denies dyspnea on exertion GI Denies hematochezia and Denies change in stool character Musc Denies abnormal gait, Denies muscle weakness, Denies numbness, Denies radiating pain into limb and Denies tingling Neuro Denies abnormal gait, Denies dizziness, Denies frequent falls, Denies numbness, Denies tingling and Denies weakness Endo Denies fatigue and Denies palpitations Physical Exam Vital Signs: Last Vital Signs Pulse 76 05/08/25 14:44 BP 126/80 05/08/25 14:44 BMI result Body Mass Index 52.5 Const General: cooperative, no acute distress, alert, awake and anxious Nutritional Appearance: obese Orientation/consciousness: patient oriented x3 Limitations: no limitations HEENT Head: Yes normocephalic and Yes atraumatic Eyes General: appearance normal, both eyes and all related structures Neck Neck: Yes trachea midline, Yes supple and Yes no JVD Chest Chest palpation & inspection: normal inspection of the chest Resp Effort & Inspection: normal respiratory effort Auscultation: clear to auscultation bilaterally Cardio Jugular venous distension: no JVD Rate: regular rate and tachycardic Heart sounds: S1 normal heart sound present and S2 normal heart sound present Skin General skin exam: no rashes or lesions noted Neuro General: patient oriented x3 and no focal motor deficits Extrem General: Yes no clubbing, cyanosis or edema Psych Affect: Anxious affect present Office Procedures EKG Details: EKG shows normal sinus rhythm with frequent PVCs with left bundle-branch block [id number], Complete Assessment & Plan Assessment & Plan (1) Aortic stenosis: Code(s): I35.0 - Nonrheumatic aortic (valve) stenosis Category: Medical Plan: Aortic stenosis which is mild by clinical exam as by echocardiogram. Continue clinical follow-up. Follow-up echocardiogram in 2 years time. Low-dose aspirin therapy is advised. Continue lipid modification with goal LDL less than 100 mg/dL. Continue aggressive blood pressure control which is currently well optimized. Importance of participate in regular physical activity and weight loss was discussed. (2) SVT (supraventricular tachycardia): Comment: status post ablation 2011 Code(s): I47.1 - Supraventricular tachycardia Category: Medical Plan: SVT which is currently suppressed on metoprolol therapy. She is tolerating this very well. She has had no recurrent events. She does have frequent PVCs which she has no symptoms related to it. No specific treatment recommended for it. Avoidance of stimulants was discussed. Vagal maneuvers were discussed. (3) Cardiac pacemaker in situ: Comment: dual-chamber Medtronic pacemaker placed July 2018 for sick sinus syndrome Code(s): Z95.0 - Presence of cardiac pacemaker Category: Medical Plan: Cardiac pacemaker in-situ for sick sinus syndrome. Pacemaker is working well remotely. Will follow up in the clinic with pacemaker rapid in 1 month's time for in-person evaluation. Continue remote follow-up. Will follow up in the clinic in 1 year's time with pacemaker rep. Thank you for allowing me to partake in her care Coding Level of Care Code Est Pt Level 4 (39153) Complex EM visit Add On G2211 Diagnoses Aortic stenosis I35.0 SVT (supraventricular tachycardia) I47.1 Cardiac pacemaker in situ Z95.0 CPT Codes EKG - CPT: 79783-[id number], Complete ([id number])
[2025-05-08 14:44] VITALS: BP 126/80; PULSE 76; BMI 52.5
== END 2025-05-08 15:28 | disposition home or self-care (01) ==
PROVIDERS: PCP Physician Assistant Medical; Visit Provider Internal Medicine Cardiovascular Disease
DX: I35.0 Nonrheumatic aortic (valve) stenosis (principal); I47.10 Supraventricular tachycardia, unspecified; Z95.0 Presence of cardiac pacemaker
CPT/HCPCS: 93010; 99214

== ENCOUNTER → 2025-05-08 14:36 | Outpatient (BNVA) | payer OTHER, SELFPAY | PROVIDERS: Visit Provider Internal Medicine Cardiovascular Disease | DX: I35.0 Nonrheumatic aortic (valve) stenosis (principal); I47.10 Supraventricular tachycardia, unspecified | CPT/HCPCS: 93005 ==

== ENCOUNTER → 2025-06-22 16:08 | Outpatient (BNV) | payer OTHER, SELFPAY | PROVIDERS: PCP Physician Assistant Medical; Visit Provider Internal Medicine Cardiovascular Disease | DX: I49.5 Sick sinus syndrome (principal) | CPT/HCPCS: 93294 ==